=== PATIENT | female | born 1945 | race African-American/Black ===

== ENCOUNTER 2021-01-07 10:49 | Outpatient (REF) | payer MEDICARE, SELFPAY ==
[2021-01-07 13:41] LABS: MANUAL DIFF FLAG NO
[2021-01-07 13:53] LABS: Alanine Aminotransferase 20 U/L (0-31); Albumin Level 4.1 g/dL (3.5-5.0); Alkaline Phosphatase 106 U/L (39-117); Anion Gap 15 (12-20); Aspartate Amino Transferase 22 U/L (5-31); Bilirubin Total 0.9 mg/dL (0.0-1.0); Blood Urea Nitrogen 22 mg/dL (9-16); Calcium 9.7 mg/dL (8.4-10.2); Carbon Dioxide 27 mmol/L (22-29); Chloride 104 mmol/L (96-108); Cholesterol 138 mg/dL; Estimated Glomerular Filt Rate 47; Glucose Fasting 96 mg/dL (60-99); HDL Cholesterol 38 mg/dL; LDL Cholesterol Calculated 85 mg/dl; Potassium 3.8 mmol/L (3.3-5.1); Sodium 142 mmol/L (135-145); Total Protein 7.6 g/dL (6.5-8.0); Triglycerides 79 mg/dL
[2021-01-07 13:59] LABS: Basophils Percent Auto 0.6 % (0-2); Eosinophils Absolute Auto 0.2 X10*3/uL (0.0-0.4); Eosinophils Percent Auto 3.7 % (0-4); Hematocrit 36.8 % (37-47); Hemoglobin 11.9 g/dl (12.0-16.0); Imm Gran Abs Auto 0.03 X10*3/uL (0.00-0.03); Imm Gran Pct Auto 0.6 % (0.0-0.4); Lymphocytes Absolute Auto 1.5 X10*3/uL (1.2-4.9); Lymphocytes Percent Auto 28.6 % (20-40); Mean Corpuscular HGB Conc 32.3 g/dl (31.0-35.0); Mean Corpuscular Hemoglobin 28.5 pg (27.0-33.0); Mean Platelet Volume 10.4 fL (9.4-12.3); Monocytes Absolute Auto 0.3 X10*3/uL (0.1-1.2); Monocytes Percent Auto 6.7 % (2-11); Neutrophils Absolute Auto 3.1 X10*3/uL (2.0-8.3); Neutrophils Percent Auto 59.8 % (45-73); Platelet Count 314 X10*3/uL (160-400); Red Blood Count 4.18 X10*6/uL (4.20-5.50); Red Cell Distribution Width 13.5 % (11.0-16.0); White Blood Count 5.1 X10*3/uL (4.8-10.8)
== END 2021-01-07 10:50 | disposition home or self-care (01) ==
LOC: HO.10HDL 10:49
PROVIDERS: PCP Internal Medicine; Visit Provider Internal Medicine
DX: I48.91 Unspecified atrial fibrillation (principal); I12.9 Hypertensive chronic kidney disease with stage 1 through stage 4 chronic kidney disease, or unspecified chronic kidney disease; N18.9 Chronic kidney disease, unspecified; E78.00 Pure hypercholesterolemia, unspecified
CPT/HCPCS: 36415; 80053; 80061; 85025

== ENCOUNTER 2021-04-14 10:50 | Outpatient (REF) | payer MEDICARE, SELFPAY ==
[2021-04-14 13:41] LABS: MANUAL DIFF FLAG NO
[2021-04-14 13:45] LABS: Basophils Absolute Auto 0.1 X10*3/uL (0.0-0.2); Basophils Percent Auto 0.8 % (0-2); Eosinophils Absolute Auto 0.2 X10*3/uL (0.0-0.4); Eosinophils Percent Auto 2.7 % (0-4); Hematocrit 36.4 % (37.0-47.0); Imm Gran Abs Auto 0.01 X10*3/uL (0.00-0.03); Imm Gran Pct Auto 0.2 % (0.0-0.4); Lymphocytes Absolute Auto 1.5 X10*3/uL (1.2-4.9); Lymphocytes Percent Auto 23.3 % (20-40); Mean Corpuscular Volume 87.9 fL (80.0-98.0); Mean Platelet Volume 10.1 fL (9.4-12.3); Monocytes Absolute Auto 0.4 X10*3/uL (0.1-1.2); Monocytes Percent Auto 6.8 % (2-11); Neutrophils Absolute Auto 4.19 x10*3/uL (2.0-8.3); Neutrophils Percent Auto 66.2 % (45-73); Platelet Count 369 X10*3/uL (160-400); Red Blood Count 4.14 X10*6/uL (4.20-5.50); Red Cell Distribution Width 14.5 % (11.0-16.0); White Blood Count 6.3 X10*3/uL (4.8-10.8)
[2021-04-14 14:21] LABS: Anion Gap 12 (12-20); Blood Urea Nitrogen 22 mg/dL (9-16); C Reactive Protein 0.25 mg/dL (< or = 0.50); Calcium 9.7 mg/dL (8.4-10.2); Carbon Dioxide 30 mmol/L (22-29); Chloride 104 mmol/L (96-108); Estimated Glomerular Filt Rate 44; Glucose Fasting 98 mg/dL (60-99); Iron 46 mcg/dL (30-160); Percent Iron Saturation 12 % (15-50); Sodium 142 mmol/L (135-145); Total Iron Binding Capacity 369 mcg/dL (228-428); Unsaturated Iron Binding 323 ug/dL
[2021-04-14 14:35] LABS: Free T4 (Free Thyroxine) 1.08 ng/dL (0.71-1.85); Thyroid Stimulating Hormone 1.22 uIU/mL (0.32-4.0)
== END 2021-04-14 10:51 | disposition home or self-care (01) ==
LOC: HO.10HDL 10:50
PROVIDERS: Visit Provider Internal Medicine
DX: I48.91 Unspecified atrial fibrillation (principal); D64.9 Anemia, unspecified; N18.9 Chronic kidney disease, unspecified
CPT/HCPCS: 36415; 80048; 83540; 84439; 84443; 85025; 86140

== ENCOUNTER 2021-08-09 10:10 | Outpatient (REF) | payer MEDICARE, SELFPAY ==
[2021-08-09 13:51] LABS: MANUAL DIFF FLAG NO
[2021-08-09 14:03] LABS: Basophils Percent Auto 0.7 % (0-2); Eosinophils Absolute Auto 0.1 X10*3/uL (0.0-0.4); Eosinophils Percent Auto 2.3 % (0-4); Hematocrit 37.5 % (37.0-47.0); Hemoglobin 12.2 g/dl (12.0-16.0); Imm Gran Abs Auto 0.02 X10*3/uL (0.00-0.03); Imm Gran Pct Auto 0.4 % (0.0-0.4); Lymphocytes Absolute Auto 1.1 X10*3/uL (1.2-4.9); Mean Corpuscular HGB Conc 32.5 g/dl (31.0-35.0); Mean Corpuscular Hemoglobin 28.1 pg (27.0-33.0); Mean Corpuscular Volume 86.4 fL (80.0-98.0); Mean Platelet Volume 10.1 fL (9.4-12.3); Monocytes Absolute Auto 0.4 X10*3/uL (0.1-1.2); Monocytes Percent Auto 6.5 % (2-11); Neutrophils Percent Auto 71.1 % (45-73); Platelet Count 377 X10*3/uL (160-400); Red Blood Count 4.34 X10*6/uL (4.20-5.50); Red Cell Distribution Width 14.1 % (11.0-16.0); White Blood Count 5.7 X10*3/uL (4.8-10.8)
[2021-08-09 14:21] LABS: Alanine Aminotransferase 23 U/L (0-31); Albumin Level 4.1 g/dL (3.5-5.0); Alkaline Phosphatase 114 U/L (39-117); Anion Gap 13 (12-20); Aspartate Amino Transferase 24 U/L (5-31); Bilirubin Total 0.9 mg/dL (0.0-1.0); Blood Urea Nitrogen 15 mg/dL (9-16); Calcium 9.8 mg/dL (8.4-10.2); Carbon Dioxide 31 mmol/L (22-29); Chloride 102 mmol/L (96-108); Estimated Glomerular Filt Rate 48; Glucose Fasting 97 mg/dL (60-99); Potassium 3.7 mmol/L (3.3-5.1); Sodium 142 mmol/L (135-145); Total Protein 7.8 g/dL (6.5-8.0)
== END 2021-08-09 10:11 | disposition home or self-care (01) ==
LOC: HO.10HDL 10:10
PROVIDERS: Visit Provider Internal Medicine
DX: I48.91 Unspecified atrial fibrillation (principal); I12.9 Hypertensive chronic kidney disease with stage 1 through stage 4 chronic kidney disease, or unspecified chronic kidney disease; N18.9 Chronic kidney disease, unspecified
CPT/HCPCS: 36415; 80053; 85025

== ENCOUNTER 2022-03-07 10:18 | Outpatient (REF) | payer MEDICARE, SELFPAY ==
[2022-03-07 10:43] LABS: MANUAL DIFF FLAG NO
[2022-03-07 10:56] LABS: Basophils Absolute Auto 0.1 X10*3/uL (0.0-0.2); Basophils Percent Auto 1.4 % (0-2); Eosinophils Absolute Auto 0.2 X10*3/uL (0.0-0.4); Eosinophils Percent Auto 3.6 % (0-4); Hematocrit 36.7 % (37.0-47.0); Hemoglobin 11.9 g/dl (12.0-16.0); Imm Gran Abs Auto 0.02 X10*3/uL (0.00-0.03); Imm Gran Pct Auto 0.3 % (0.0-0.4); Lymphocytes Absolute Auto 1.4 X10*3/uL (1.2-4.9); Lymphocytes Percent Auto 23.7 % (20-40); Mean Corpuscular HGB Conc 32.4 g/dl (31.0-35.0); Mean Corpuscular Hemoglobin 28.5 pg (27.0-33.0); Mean Corpuscular Volume 87.8 fL (80.0-98.0); Mean Platelet Volume 9.7 fL (9.4-12.3); Monocytes Absolute Auto 0.5 X10*3/uL (0.1-1.2); Monocytes Percent Auto 8.1 % (2-11); Neutrophils Absolute Auto 3.7 x10*3/uL (2.0-8.3); Neutrophils Percent Auto 62.9 % (45-73); Platelet Count 348 X10*3/uL (160-400); Red Blood Count 4.18 X10*6/uL (4.20-5.50); White Blood Count 5.8 X10*3/uL (4.8-10.8)
[2022-03-07 11:24] LABS: Alanine Aminotransferase 32 U/L (0-31); Alkaline Phosphatase 111 U/L (39-117); Anion Gap 14 (12-20); Aspartate Amino Transferase 37 U/L (5-31); Bilirubin Total 0.7 mg/dL (0.0-1.0); Blood Urea Nitrogen 15 mg/dL (9-16); Calcium 9.3 mg/dL (8.4-10.2); Carbon Dioxide 30 mmol/L (22-29); Chloride 105 mmol/L (96-108); Cholesterol 116 mg/dL; Estimated Glomerular Filt Rate 60; Glucose Fasting 94 mg/dL (60-99); HDL Cholesterol 38 mg/dL; LDL Cholesterol Calculated 68 mg/dl; Potassium 3.6 mmol/L (3.3-5.1); Sodium 145 mmol/L (135-145); Total Protein 7.2 g/dL (6.5-8.0); Triglycerides 51 mg/dL
== END 2022-03-07 10:19 | disposition home or self-care (01) ==
LOC: HO.10HDL 10:18
PROVIDERS: Visit Provider Internal Medicine
DX: I48.91 Unspecified atrial fibrillation (principal); I10 Essential (primary) hypertension; E78.00 Pure hypercholesterolemia, unspecified
CPT/HCPCS: 36415; 80053; 80061; 85025

== ENCOUNTER 2022-06-20 10:05 | Outpatient (REF) | payer MEDICARE, SELFPAY ==
[2022-06-20 10:33] LABS: MANUAL DIFF FLAG NO
[2022-06-20 10:39] LABS: Basophils Absolute Auto 0.1 X10*3/uL (0.0-0.2); Basophils Percent Auto 0.8 % (0-2); Eosinophils Absolute Auto 0.2 X10*3/uL (0.0-0.4); Eosinophils Percent Auto 2.4 % (0-4); Hematocrit 39.1 % (37.0-47.0); Hemoglobin 12.6 g/dl (12.0-16.0); Imm Gran Abs Auto 0.02 X10*3/uL (0.00-0.03); Imm Gran Pct Auto 0.3 % (0.0-0.4); Lymphocytes Absolute Auto 1.1 X10*3/uL (1.2-4.9); Lymphocytes Percent Auto 18.2 % (20-40); Mean Corpuscular HGB Conc 32.2 g/dl (31.0-35.0); Mean Corpuscular Hemoglobin 28.5 pg (27.0-33.0); Mean Corpuscular Volume 88.5 fL (80.0-98.0); Mean Platelet Volume 9.9 fL (9.4-12.3); Monocytes Absolute Auto 0.5 X10*3/uL (0.1-1.2); Monocytes Percent Auto 7.3 % (2-11); Neutrophils Absolute Auto 4.4 x10*3/uL (2.0-8.3); Platelet Count 312 X10*3/uL (160-400); Red Blood Count 4.42 X10*6/uL (4.20-5.50); White Blood Count 6.1 X10*3/uL (4.8-10.8)
[2022-06-20 11:18] LABS: Alanine Aminotransferase 15 U/L (0-31); Albumin Level 4.2 g/dL (3.5-5.0); Alkaline Phosphatase 112 U/L (39-117); Anion Gap 14 (12-20); Aspartate Amino Transferase 20 U/L (5-31); Blood Urea Nitrogen 23 mg/dL (9-16); Calcium 9.8 mg/dL (8.4-10.2); Carbon Dioxide 28 mmol/L (22-29); Chloride 107 mmol/L (96-108); Estimated Glomerular Filt Rate 54; Glucose Fasting 89 mg/dL (60-99); Iron 86 mcg/dL (30-160); Percent Iron Saturation 27 % (15-50); Potassium 3.8 mmol/L (3.3-5.1); Sodium 145 mmol/L (135-145); Total Iron Binding Capacity 324 mcg/dL (228-428); Total Protein 7.7 g/dL (6.5-8.0); Unsaturated Iron Binding 238 ug/dL
== END 2022-06-20 10:06 | disposition home or self-care (01) ==
LOC: HO.10HDL 10:05
PROVIDERS: Visit Provider Internal Medicine
DX: I48.91 Unspecified atrial fibrillation (principal); D64.9 Anemia, unspecified; N18.9 Chronic kidney disease, unspecified
CPT/HCPCS: 36415; 80053; 83540; 85025

== ENCOUNTER 2022-10-13 10:48 | Outpatient (REF) | payer MEDICARE, SELFPAY ==
[2022-10-13 13:31] LABS: MANUAL DIFF FLAG NO
[2022-10-13 13:39] LABS: Basophils Absolute Auto 0.1 X10*3/uL (0.0-0.2); Basophils Percent Auto 0.8 % (0-2); Eosinophils Absolute Auto 0.2 X10*3/uL (0.0-0.4); Eosinophils Percent Auto 3.1 % (0-4); Hematocrit 37.4 % (37.0-47.0); Hemoglobin 12.3 g/dl (12.0-16.0); Imm Gran Abs Auto 0.02 X10*3/uL (0.00-0.03); Imm Gran Pct Auto 0.3 % (0.0-0.4); Lymphocytes Absolute Auto 1.3 X10*3/uL (1.2-4.9); Lymphocytes Percent Auto 20.1 % (20-40); Mean Corpuscular HGB Conc 32.9 g/dl (31.0-35.0); Mean Corpuscular Hemoglobin 28.9 pg (27.0-33.0); Mean Platelet Volume 9.9 fL (9.4-12.3); Monocytes Absolute Auto 0.6 X10*3/uL (0.1-1.2); Monocytes Percent Auto 8.6 % (2-11); Neutrophils Absolute Auto 4.4 x10*3/uL (2.0-8.3); Neutrophils Percent Auto 67.1 % (45-73); Platelet Count 319 X10*3/uL (160-400); Red Blood Count 4.25 X10*6/uL (4.20-5.50); White Blood Count 6.5 X10*3/uL (4.8-10.8)
[2022-10-13 13:58] LABS: Alanine Aminotransferase 31 U/L (0-31); Albumin Level 4.1 g/dL (3.5-5.0); Alkaline Phosphatase 113 U/L (39-117); Anion Gap 13 (12-20); Aspartate Amino Transferase 33 U/L (5-31); Bilirubin Total 0.9 mg/dL (0.0-1.0); Blood Urea Nitrogen 26 mg/dL (9-16); Calcium 9.6 mg/dL (8.4-10.2); Carbon Dioxide 27 mmol/L (22-29); Chloride 106 mmol/L (96-108); Estimated Glomerular Filt Rate 48; Glucose Random 101 mg/dL (60-115); Potassium 3.9 mmol/L (3.3-5.1); Sodium 142 mmol/L (135-145); Total Protein 7.4 g/dL (6.5-8.0)
[2022-10-13 14:25] LABS: Free T4 (Free Thyroxine) 1.14 ng/dL (0.71-1.85); Thyroid Stimulating Hormone 1.18 uIU/mL (0.32-4.0); Vitamin B12 623 pg/mL (200-900)
== END 2022-10-13 10:49 | disposition home or self-care (01) ==
LOC: HO.10HDL 10:48
PROVIDERS: Visit Provider Internal Medicine
DX: R53.83 Other fatigue (principal); I48.91 Unspecified atrial fibrillation; I12.9 Hypertensive chronic kidney disease with stage 1 through stage 4 chronic kidney disease, or unspecified chronic kidney disease; N18.9 Chronic kidney disease, unspecified
CPT/HCPCS: 36415; 80053; 82607; 84439; 84443; 85025; 86140

== ENCOUNTER 2023-01-03 08:15 | Outpatient (AMB) | payer MEDICARE, SELFPAY ==
--- NOTE | 2023-01-03 08:28 | MHC.OFFVIS ---
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 Intake Note: NPV w/ EKG Charge Account Authorizer Required: No Accompanied by: Daughter Allergies amoxicillin [AMOXICILLIN] Allergy (Unknown, Verified 01/03/23 08:33) ITCHINESS/RASH Amoxicillin Allergy (Unknown, Uncoded 01/03/23 08:33) ??rash Medication List - Last Reconciled 01/03/23 by Girish Jalloh MD amlodipine 10 mg PO DAILY apixaban (Eliquis) 5 mg PO BID aspirin (Adult Aspirin Regimen) 81 mg PO DAILY atorvastatin 80 mg PO BEDTIME cholecalciferol (vitamin D3) 25 mcg PO DAILY metoprolol tartrate 100 mg PO BID triamterene-hydrochlorothiazid 37.5-25 mg 1 tab PO DAILY HPI HPI Comments History of Present Illness Details Karolina is here for consultation regarding possible congestive heart failure. She has a long history of atrial fibrillation, going back many years apparently. She has seen Dr. Davies in the past but nothing in the recent past. History of coronary disease. Per prior documentation, PCI to circumflex/OM 2010. Also diffuse RCA disease. She states that recently she has been getting more short of breath than usual. Some degree of leg swelling. Hence she has been referred. No clear-cut angina. [facility] Medical History (Updated 01/03/23 @ 08:50 by Girish Jalloh MD) Atherosclerotic cardiovascular disease Persistent atrial fibrillation Stroke Family History (Updated 01/03/23 @ 08:38 by Sarah Trevizo) Brother S/P triple vessel bypass Social History (Updated 01/03/23 @ 08:38 by Sarah Trevizo) Alcohol intake: never Patient Tobacco Use Status: Never used Tobacco Review of Systems Const Denies chills, Denies daytime sleepiness, Denies fatigue, Denies fever(s), Denies frequent falls, Denies night sweats, Denies snoring, Denies weakness, Denies weight gain and Denies weight loss Eyes Denies loss of vision ENT Denies dizziness and Denies hearing loss Card Denies chest pain, Denies chest pain with activity, Denies syncope, Denies rapid heart rate, Denies edema, Denies claudication, Denies leg edema, Denies lightheadedness, Denies palpitations, Denies dyspnea, Denies dyspnea on exertion and Denies orthopnea Resp Denies cough, Denies excessive phlegm production, Denies dyspnea, Denies dyspnea on exertion, Denies snoring and Denies wheezing GI Denies abdominal pain, Denies hematochezia, Denies change in bowel habits, Denies change in stool character, Denies heartburn, Denies nausea and Denies vomiting Denies hematuria, Denies urinary frequency and Denies dysuria Musc Denies arthralgias, Denies muscle weakness, Denies numbness and Denies tingling Skin/Breast Denies nail changes and Denies rash Neuro Denies Abnormal speech present, Denies dizziness, Denies syncope, Denies frequent falls, Denies loss of vision, Denies memory loss, Denies numbness, Denies tingling and Denies weakness Psych Denies depression and Denies memory loss Endo Denies fatigue and Denies palpitations Aller/Immun Denies wheezing Physical Exam Vital Signs: Last Vital Signs Pulse 70 01/03/23 08:30 BP 108/62 01/03/23 08:30 BMI result Body Mass Index 28.7 Const General: comfortable and no acute distress Orientation/consciousness: patient oriented x3 HEENT Other: Unremarkable Head: Yes normal to inspection Neck Neck: Yes normal visual inspection Chest Chest palpation & inspection: normal inspection of the chest Resp Auscultation: clear to auscultation bilaterally Cardio Palpation: normal PMI Heart sounds: S1 normal heart sound present, S2 normal heart sound present, no gallops, Murmur heart sound present diastolic II/ and at the right sternal border and no rubs GI Palpation (GI): Soft to palpation Back/Spine/Pelvis Other: unremarkable Skin General skin exam: no rashes or lesions noted Neuro General: patient oriented x3 Speech: No Abnormal speech present Extrem Other: 1+ edema General: Yes normal to inspection Psych Mental Status: mental status grossly normal Assessment & Plan Assessment & Plan (1) Persistent atrial fibrillation: Code(s): I48.19 - Other persistent atrial fibrillation Plan: Seems rate controlled. We will check Holter for adequacy control. Otherwise, continue current medications. Already on anticoagulation. Recent EKG shows atrial fibrillation rate of 68/Min. (2) Atherosclerotic cardiovascular disease: Code(s): I25.10 - Atherosclerotic heart disease of [place] coronary artery without angina pectoris Plan: Per prior documentation, PCI to circumflex/OM from 2011. Severe diffuse RCA disease as well. May need a stress test but will await the echocardiogram 1st. (3) Congestive heart failure: Code(s): I50.9 - Heart failure, unspecified Plan: She does have some leg swelling/shortness of breath and could have developed congestive heart failure related to coronary disease and atrial fibrillation. Needs an echocardiogram for further evaluation. Plan Discussed with daughter who came for appointment. Orders: Orders CA echo transthoracic complete Today I25.10 - Atherosclerotic heart disease of [place] coronary artery without angina pectoris, I50.9 - Heart failure, unspecified ECG 3 day holter monitor Today I48.19 - Other persistent atrial fibrillation, R00.2 - Palpitations Coding Level of Care Code New Pt Level 4 (63505) Diagnoses Persistent atrial fibrillation I48.19 Atherosclerotic cardiovascular disease I25.10 Congestive heart failure I50.9
[2023-01-03 08:30] VITALS: BP 108/62; PULSE 70; BMI 28.7
== END 2023-01-03 08:59 | disposition home or self-care (01) ==
PROVIDERS: Visit Provider Internal Medicine
DX: I48.19 Other persistent atrial fibrillation (principal); I25.10 Atherosclerotic heart disease of native coronary artery without angina pectoris; I50.9 Heart failure, unspecified
CPT/HCPCS: 99204

== ENCOUNTER → 2023-01-03 08:15 | Outpatient (BNVA) | payer MEDICARE, SELFPAY | PROVIDERS: Visit Provider Internal Medicine | DX: I48.19 Other persistent atrial fibrillation (principal); I25.10 Atherosclerotic heart disease of native coronary artery without angina pectoris; I11.0 Hypertensive heart disease with heart failure; I50.9 Heart failure, unspecified; Z95.5 Presence of coronary angioplasty implant and graft | CPT/HCPCS: 99202 ==

== ENCOUNTER 2023-01-05 11:55 | Outpatient (REF) | payer MEDICARE, SELFPAY ==
[2023-01-05 13:28] LABS: MANUAL DIFF FLAG NO
[2023-01-05 13:56] LABS: Basophils Absolute Auto 0.1 X10*3/uL (0.0-0.2); Basophils Percent Auto 0.9 % (0-2); Eosinophils Absolute Auto 0.2 X10*3/uL (0.0-0.4); Eosinophils Percent Auto 3.2 % (0-4); Hematocrit 39.5 % (37.0-47.0); Lymphocytes Absolute Auto 1.4 X10*3/uL (1.2-4.9); Mean Corpuscular HGB Conc 32.9 g/dl (31.0-35.0); Mean Corpuscular Hemoglobin 28.4 pg (27.0-33.0); Mean Corpuscular Volume 86.4 fL (80.0-98.0); Mean Platelet Volume 10.1 fL (9.4-12.3); Monocytes Absolute Auto 0.5 X10*3/uL (0.1-1.2); Monocytes Percent Auto 8.1 % (2-11); Neutrophils Absolute Auto 3.5 x10*3/uL (2.0-8.3); Neutrophils Percent Auto 62.8 % (45-73); Platelet Count 292 X10*3/uL (160-400); Red Blood Count 4.57 X10*6/uL (4.20-5.50); Red Cell Distribution Width 14.9 % (11.0-16.0); White Blood Count 5.6 X10*3/uL (4.8-10.8)
[2023-01-05 14:18] LABS: Anion Gap 16 (12-20); Blood Urea Nitrogen 20 mg/dL (9-16); Calcium 9.7 mg/dL (8.4-10.2); Carbon Dioxide 24 mmol/L (22-29); Chloride 106 mmol/L (96-108); Estimated Glomerular Filt Rate 57; Glucose Random 93 mg/dL (60-115); Iron 72 mcg/dL (30-160); Percent Iron Saturation 23 % (15-50); Potassium 3.8 mmol/L (3.3-5.1); Sodium 142 mmol/L (135-145); Total Iron Binding Capacity 308 mcg/dL (228-428); Unsaturated Iron Binding 236 ug/dL
== END 2023-01-05 11:56 | disposition home or self-care (01) ==
LOC: HO.10HDL 11:55
PROVIDERS: Visit Provider Internal Medicine
DX: I48.91 Unspecified atrial fibrillation (principal); R60.9 Edema, unspecified; N18.9 Chronic kidney disease, unspecified
CPT/HCPCS: 36415; 80048; 83540; 85025

== ENCOUNTER → 2023-01-11 13:02 | Outpatient (REF) | payer MEDICARE, SELFPAY ==
--- NOTE | 2023-01-11 13:06 | CA_ITS ---
Transthoracic Echocardiogram Patient (Last, First, Middle): Karolina Reed, Gender: Female Date of : 1945 Age: 77 Procedure Date: 01/11/2023 Procedure Type: Transthoracic Echocardiogram Location: OP Height: 165.1 cm Weight: 76.66 kg BSA: 1.84 m2 Heart Rate: 84 bpm BP: 120 / 60 mmHg Technical Engineer: FRANCES Referring MD: Girish Jalloh MD Symptoms: I25.10 - Atherosclerotic heart disease of [place] coronary artery without... Study Quality: Adequate ECG Rhythm: Atrial Fibrillation Conclusions: - The calculated ejection fraction is 64% by biplane method. There is no evidence of regional wall motion abnormalities. - Severe biatrial enlargement. - There is mild aortic valve regurgitation. - Moderate pulmonary hypertension is present. - There is mild dilatation of the ascending aorta measuring 4.20 cm. Findings Left Ventricle Normal left ventricular cavity size. The left ventricular systolic function is normal. The calculated ejection fraction is 64% by biplane method. There is no evidence of regional wall motion abnormalities. Diastolic function is indeterminate on the basis of available data. There is moderate septal and moderate basal asymmetric hypertrophy. Right Ventricle Normal right ventricular cavity size. There is mildly decreased right ventricular systolic function. Atria Severe biatrial enlargement. Aortic Valve There is a normal trileaflet aortic valve. There is mild calcification of the aortic valve. There is mild aortic valve regurgitation. Mitral Valve There is mild mitral annular calcification. There is mild mitral valve regurgitation. There is no mitral valve stenosis. Pulmonic Valve There is trace to mild pulmonic valve regurgitation. Tricuspid Valve Normal tricuspid valve structure. There is mild tricuspid valve regurgitation. The right ventricular systolic pressure is 66 mmHg. Moderate pulmonary hypertension is present. Great Vessels There is mild dilatation of the ascending aorta measuring 4.20 cm. Venous The inferior vena cava is mildly dilated and collapses less than 50% with inspiration. Pericardium/Pleural There is no evidence of pericardial effusion. Prior Study Comparison Changes noted compared to prior study dated: 12/23/2014. Increase in atrial size. Measurements 2D Linear Measurements IVSd: 1.44 0.6-0.9/0.6-1.0 cm LVIDd: 3.93 3.9-5.3/4.2-5.9 cm LVIDd Index: 2.14 2.4-3.2/2.2-3.1 cm/m2 LVIDs: 2.38 2.0-3.6 cm LVPWd: 1.10 0.7-1.1 cm LA Diam: 4.10 2.7-3.8/3.0-4.0 cm LAIDs Index: 2.23 1.5-2.3 cm/m2 LV Mass: 218.55 67-162/88-224 g LV Mass Index: 118.78 43-95/49-115 g/m2 LVOT Diam: 1.80 3.0+(-)1.3 cm 2D Systolic Function EF 4C: 64.70 >55% EF 2C: 64.70 >55% EF BiP: 64.20 >55% Mitral Valve MV Pk E: 1.30 MV Decel Time: 176.00 E'Lateral: 9.79 E'Medial: 7.51 E/E' Med: 17.30 E/E' Lat: 13.30 PHT: 52.00 MVA PHT: 4.23 Decel [place]: 7.38 Aortic Valve AoV Pk Dereck: 2.07 AoV Mn Dereck: 1.43 AoV VTI: 0.46 AoV Pk Grad: 17.00 Aov Mn Grad: 9.00 MARK Cont.VTI: 1.42 AI Pk Dereck: 3.58 AI [place]: 2.37 LVOT LVOT Pk Dereck: 1.19 LVOT Mn [place]reck: 0.78 LVOT VTI: 0.26 LVOT Pk Grad: 6.00 LVOT Mn Grad: 3.00 LVOT Diam: 1.80 LVOT Area: 2.54 Diastolic Function MV Pk E: 1.30 E'Medial: 7.51 E/E' Med: 17.30 E' Laterial: 9.79 E/E' Lat: 13.30 Right Ventricle TAPSE (mm): 14.30 TVS' [place]reck: 8.59 Tricuspid Valve TR Pk Dereck: 3.56 TR Pk Grad: 51.00 RA Press: 15.00 RVSP: 66.00 Great Vessels Aorta Sinus of Valsalva: 3.40 2.0-3.5 cm Ao Asc: 4.20 2.1-3.4 cm Pulmonary Valve PV Pk Dereck: 0.99 Peak PV Grad: 4.00 ID Pk Dereck: 2.62 Updated in Other Vendor System with Status of Final Girish Jalloh MD electronically signed on 01/14/2023 10:24:52 AM with status of Final
--- NOTE | 2023-01-11 13:06 | HM_ITS ---
* Total monitoring time 3 days. * Underlying rhythm is atrial fibrillation. Average ventricular rate 66/Min. Range 43 to 101/Min. * No significant pauses or AV blocks. * Frequent PVCs with a burden of 3.8%. * Chest discomfort and diarrhea associated with atrial fibrillation, controlled rate/ isolated PVCs. MTDD
== END ==
LOC: HO.CARD 13:02
PROVIDERS: PCP Internal Medicine; Visit Provider Internal Medicine
DX: I25.10 Atherosclerotic heart disease of native coronary artery without angina pectoris (principal); I50.9 Heart failure, unspecified; I48.19 Other persistent atrial fibrillation; R00.2 Palpitations
CPT/HCPCS: 93242; 93306

== ENCOUNTER → 2023-01-11 13:06 | Outpatient (BNV) | payer MEDICARE, SELFPAY | PROVIDERS: PCP Internal Medicine; Visit Provider Internal Medicine | DX: I48.91 Unspecified atrial fibrillation (principal) | CPT/HCPCS: 93244; 93306 ==

== ENCOUNTER 2023-04-14 10:09 | Outpatient (REF) | payer MEDICARE, SELFPAY ==
[2023-04-14 10:40] LABS: MANUAL DIFF FLAG NO
[2023-04-14 10:45] LABS: Basophils Percent Auto 0.7 % (0-2); Eosinophils Absolute Auto 0.2 X10*3/uL (0.0-0.4); Eosinophils Percent Auto 3.2 % (0-4); Hematocrit 34.4 % (37.0-47.0); Hemoglobin 11.5 g/dl (12.0-16.0); Imm Gran Abs Auto 0.02 X10*3/uL (0.00-0.03); Imm Gran Pct Auto 0.3 % (0.0-0.4); Lymphocytes Absolute Auto 1.3 X10*3/uL (1.2-4.9); Lymphocytes Percent Auto 21.5 % (20-40); Mean Corpuscular HGB Conc 33.4 g/dl (31.0-35.0); Mean Corpuscular Hemoglobin 29.4 pg (27.0-33.0); Mean Platelet Volume 9.6 fL (9.4-12.3); Monocytes Absolute Auto 0.4 X10*3/uL (0.1-1.2); Monocytes Percent Auto 7.5 % (2-11); Neutrophils Absolute Auto 3.9 x10*3/uL (2.0-8.3); Neutrophils Percent Auto 66.8 % (45-73); Platelet Count 275 X10*3/uL (160-400); Red Blood Count 3.91 X10*6/uL (4.20-5.50); Red Cell Distribution Width 13.7 % (11.0-16.0); White Blood Count 5.9 X10*3/uL (4.8-10.8)
[2023-04-14 11:11] LABS: Alanine Aminotransferase 18 U/L (0-31); Albumin Level 3.9 g/dL (3.5-5.0); Alkaline Phosphatase 86 U/L (39-117); Anion Gap 12 (12-20); Aspartate Amino Transferase 23 U/L (5-31); Bilirubin Total 0.9 mg/dL (0.0-1.0); Blood Urea Nitrogen 19 mg/dL (9-16); Calcium 9.4 mg/dL (8.4-10.2); Carbon Dioxide 27 mmol/L (22-29); Chloride 104 mmol/L (96-108); Cholesterol 108 mg/dL (<200); Estimated Glomerular Filt Rate 52; Glucose Random 88 mg/dL (60-115); Potassium 3.2 mmol/L (3.3-5.1); Sodium 140 mmol/L (135-145); Total Protein 7.5 g/dL (6.5-8.0)
[2023-04-14 11:25] LABS: Vitamin D 25-OH Total 45.8 ng/mL (>30)
== END 2023-04-14 10:10 | disposition home or self-care (01) ==
LOC: HO.10HDL 10:09
PROVIDERS: Visit Provider Internal Medicine
DX: I12.9 Hypertensive chronic kidney disease with stage 1 through stage 4 chronic kidney disease, or unspecified chronic kidney disease (principal); I48.91 Unspecified atrial fibrillation; N18.9 Chronic kidney disease, unspecified; E78.00 Pure hypercholesterolemia, unspecified
CPT/HCPCS: 36415; 80053; 82306; 82465; 83735; 85025

== ENCOUNTER 2023-08-11 10:11 | Outpatient (REF) | payer MEDICARE, SELFPAY ==
[2023-08-11 11:06] LABS: MANUAL DIFF FLAG NO
[2023-08-11 11:40] LABS: Basophils Absolute Auto 0.1 X10*3/uL (0.0-0.2); Eosinophils Absolute Auto 0.2 X10*3/uL (0.0-0.4); Hematocrit 40.2 % (37.0-47.0); Hemoglobin 13.4 g/dl (12.0-16.0); Imm Gran Abs Auto 0.02 X10*3/uL (0.00-0.03); Imm Gran Pct Auto 0.3 % (0.0-0.4); Lymphocytes Absolute Auto 1.4 X10*3/uL (1.2-4.9); Lymphocytes Percent Auto 24.8 % (20-40); Mean Corpuscular HGB Conc 33.3 g/dl (31.0-35.0); Mean Corpuscular Hemoglobin 28.8 pg (27.0-33.0); Mean Corpuscular Volume 86.3 fL (80.0-98.0); Mean Platelet Volume 10.1 fL (9.4-12.3); Monocytes Absolute Auto 0.5 X10*3/uL (0.1-1.2); Neutrophils Absolute Auto 3.5 x10*3/uL (2.0-8.3); Neutrophils Percent Auto 60.9 % (45-73); Platelet Count 316 X10*3/uL (160-400); Red Blood Count 4.66 X10*6/uL (4.20-5.50); Red Cell Distribution Width 13.7 % (11.0-16.0); White Blood Count 5.8 X10*3/uL (4.8-10.8)
[2023-08-11 12:12] LABS: Anion Gap 10 (12-20); Blood Urea Nitrogen 21 mg/dL (9-16); Calcium 9.5 mg/dL (8.4-10.2); Carbon Dioxide 30 mmol/L (22-29); Chloride 107 mmol/L (96-108); Estimated Glomerular Filt Rate 59; Glucose Random 82 mg/dL (60-115); Iron 48 mcg/dL (30-160); Percent Iron Saturation 16 % (15-50); Potassium 3.6 mmol/L (3.3-5.1); Sodium 143 mmol/L (135-145); Total Iron Binding Capacity 291 mcg/dL (228-428); Unsaturated Iron Binding 243 ug/dL
[2023-08-11 12:13] LABS: Thyroid Stimulating Hormone 1.28 uIU/mL (0.32-4.0)
== END 2023-08-11 10:12 | disposition home or self-care (01) ==
LOC: HO.10HDL 10:11
PROVIDERS: Visit Provider Internal Medicine
DX: I48.91 Unspecified atrial fibrillation (principal); I12.9 Hypertensive chronic kidney disease with stage 1 through stage 4 chronic kidney disease, or unspecified chronic kidney disease; N18.9 Chronic kidney disease, unspecified; R53.83 Other fatigue; D64.9 Anemia, unspecified
CPT/HCPCS: 36415; 80048; 82550; 83540; 84443; 85025

== ENCOUNTER 2024-01-17 10:01 | Outpatient (REF) | payer MEDICARE, SELFPAY ==
[2024-01-17 11:03] LABS: MANUAL DIFF FLAG NO
[2024-01-17 11:27] LABS: Basophils Absolute Auto 0.1 X10*3/uL (0.0-0.2); Basophils Percent Auto 1.1 % (0-2); Eosinophils Absolute Auto 0.2 X10*3/uL (0.0-0.4); Eosinophils Percent Auto 3.6 % (0-4); Hematocrit 36.1 % (37.0-47.0); Hemoglobin 11.9 g/dl (12.0-16.0); Imm Gran Abs Auto 0.02 X10*3/uL (0.00-0.03); Imm Gran Pct Auto 0.4 % (0.0-0.4); Lymphocytes Absolute Auto 1.6 X10*3/uL (1.2-4.9); Lymphocytes Percent Auto 29.9 % (20-40); Mean Corpuscular Volume 87.8 fL (80.0-98.0); Mean Platelet Volume 10.1 fL (9.4-12.3); Monocytes Absolute Auto 0.4 X10*3/uL (0.1-1.2); Monocytes Percent Auto 7.4 % (2-11); Neutrophils Absolute Auto 3.1 x10*3/uL (2.0-8.3); Neutrophils Percent Auto 57.6 % (45-73); Platelet Count 284 X10*3/uL (160-400); Red Blood Count 4.11 X10*6/uL (4.20-5.50); White Blood Count 5.3 X10*3/uL (4.8-10.8)
[2024-01-17 11:32] LABS: Anion Gap 10 (12-20); Blood Urea Nitrogen 21 mg/dL (9-16); Calcium 9.6 mg/dL (8.4-10.2); Carbon Dioxide 30 mmol/L (22-29); Chloride 106 mmol/L (96-108); Estimated Glomerular Filt Rate 49; Glucose Random 82 mg/dL (60-115); Sodium 142 mmol/L (135-145)
[2024-01-17 11:50] LABS: Thyroid Stimulating Hormone 1.07 uIU/mL (0.32-4.0)
== END 2024-01-17 10:02 | disposition home or self-care (01) ==
LOC: HO.10HDL 10:01
PROVIDERS: Visit Provider Internal Medicine
DX: I48.91 Unspecified atrial fibrillation (principal); R63.4 Abnormal weight loss; I12.9 Hypertensive chronic kidney disease with stage 1 through stage 4 chronic kidney disease, or unspecified chronic kidney disease; N18.9 Chronic kidney disease, unspecified; R60.0 Localized edema
CPT/HCPCS: 36415; 80048; 84443; 85025

== ENCOUNTER 2024-03-11 10:00 | Outpatient (REF) | payer MEDICARE, SELFPAY ==
[2024-03-11 10:13] LABS: MANUAL DIFF FLAG NO
[2024-03-11 11:03] LABS: Basophils Percent Auto 0.7 % (0-2); Eosinophils Absolute Auto 0.2 X10*3/uL (0.0-0.4); Eosinophils Percent Auto 3.4 % (0-4); Hematocrit 38.3 % (37.0-47.0); Hemoglobin 12.6 g/dl (12.0-16.0); Imm Gran Abs Auto 0.01 X10*3/uL (0.00-0.03); Imm Gran Pct Auto 0.2 % (0.0-0.4); Lymphocytes Absolute Auto 1.1 X10*3/uL (1.2-4.9); Mean Corpuscular HGB Conc 32.9 g/dl (31.0-35.0); Mean Corpuscular Hemoglobin 28.8 pg (27.0-33.0); Mean Corpuscular Volume 87.6 fL (80.0-98.0); Mean Platelet Volume 9.9 fL (9.4-12.3); Monocytes Absolute Auto 0.4 X10*3/uL (0.1-1.2); Monocytes Percent Auto 8.2 % (2-11); Neutrophils Absolute Auto 2.7 x10*3/uL (2.0-8.3); Neutrophils Percent Auto 61.5 % (45-73); Platelet Count 277 X10*3/uL (160-400); Red Blood Count 4.37 X10*6/uL (4.20-5.50); Red Cell Distribution Width 13.7 % (11.0-16.0); White Blood Count 4.4 X10*3/uL (4.8-10.8)
[2024-03-11 11:30] LABS: Alanine Aminotransferase 29 U/L (0-31); Albumin Level 4.1 g/dL (3.5-5.0); Alkaline Phosphatase 124 U/L (39-117); Anion Gap 9 (12-20); Aspartate Amino Transferase 40 U/L (5-31); Bilirubin Total 1.2 mg/dL (0.0-1.0); Blood Urea Nitrogen 17 mg/dL (9-16); Calcium 9.7 mg/dL (8.4-10.2); Carbon Dioxide 30 mmol/L (22-29); Chloride 107 mmol/L (96-108); Cholesterol 129 mg/dL (<200); Estimated Glomerular Filt Rate 59; Glucose Fasting 81 mg/dL (60-99); HDL Cholesterol 49 mg/dL (>40); LDL Cholesterol Calculated 70 mg/dL (<100); Potassium 3.8 mmol/L (3.3-5.1); Sodium 142 mmol/L (135-145); Total Protein 7.7 g/dL (6.5-8.0); Triglycerides 51 mg/dL (<150)
== END 2024-03-11 10:01 | disposition home or self-care (01) ==
LOC: HO.LAB 10:00
PROVIDERS: PCP Internal Medicine; Visit Provider Internal Medicine
DX: I48.91 Unspecified atrial fibrillation (principal); I10 Essential (primary) hypertension; N18.9 Chronic kidney disease, unspecified; E78.00 Pure hypercholesterolemia, unspecified
CPT/HCPCS: 36415; 80053; 80061; 85025

== ENCOUNTER 2024-10-29 09:02 | Outpatient (AMB) | payer MEDICARE, SELFPAY ==
--- NOTE | 2024-10-29 09:17 | MHC.PC.OV ---
Vital Signs 10/29/24 09:26 Height 5 ft 4 in Weight 67.585 kg BMI 25.6 BP 160/72 H Respiration 16 Pulse 61 Pulse Source Pulse Oximeter Temp 97.3 F Temp Source Temporal Artery Scan Pulse Oximetry (%) 85 L Oxygen Delivery Method Room Air Intake Visit Reasons: Routine Social And Human Services Assistant Required: No Accompanied by: Self / Same As Patient Allergies amoxicillin [AMOXICILLIN] Allergy (Unknown, Verified 10/29/24 09:24) ITCHINESS/RASH Amoxicillin Allergy (Unknown, Uncoded 10/29/24 09:24) ??rash HPI HPI Comments History of Present Illness Details 78-year-old female with history of persistent atrial fibrillation, coronary artery disease, congestive heart failure, hypertension, history of CVA presents to the office today for management of chronic conditions and to establish care accompanied by her daughter Nikky. Persistent atrial fibrillation-compliant with Eliquis, no easy bruisability or bleeding. Continues on metoprolol 100 mg twice daily for rate control. Holter 02/01 with afib as underlying rhythm, frequent PVC's 3.8%, no significant pauses Coronary artery disease-s/p PCI to circumflex/OM 2010 with severe diffuse RCA disease. Has not seen cardiology since 2022 as she did not want anyone managing her care except Dr. Veliz. Compliant with isosorbide, asa, metoprolol. Has not required use of nitro tabs recently. CVA- 2014 x 2, 2016. Per daughter, has been unsteady since CVA, ambulates with a walker. Reports she is not always careful with turns and transfers but has not fallen. Laundry is in basement and daughters assist. ROS: General: No fevers, malaise, unintentional weight loss HEENT: No blurred vision, diplopia. No sore throat, nasal congestion, rhinorrhea, sinus pain, ear pain Cardiovascular: No chest pain, palpitations, or leg edema Respiratory: No shortness of breath, wheezing, cough Neuro: No headaches, weakness, paresthesias. See hpi Skin: No rashes or lesions Exam: Constitutional - Awake and Alert, No apparent distress Eyes - PERRLA, EOMI Cardiovascular - S1S2, RRR, No edema Respiratory - Normal lung expansion, Normal respiratory effort, No respiratory distress, CTA bilaterally Extremities - no calf tenderness bilaterally, no swelling Skin - Warm/Dry Neurological - Alert & oriented x3 Psychological - Appropriate affect PFSH Medical History (Updated 10/30/24 @ 10:56 by KASIA Larkin) Stroke Atherosclerotic cardiovascular disease Persistent atrial fibrillation Surgical History (Updated 10/30/24 @ 10:56 by KASIA Larkin) S/P cardiac catheterization History of colonoscopy (~02/24/14) Family History (Updated 01/03/23 @ 08:38 by Sarah Trevizo) Brother S/P triple vessel bypass Social History (Updated 01/03/23 @ 08:38 by Sarah Trevizo) Alcohol intake: never Patient Tobacco Use Status: Never used Tobacco Physical exam (Primary Care) Vital Signs: Last Vital Signs Temp 97.3 F 10/29/24 09:26 Pulse 61 10/29/24 09:26 Resp 16 10/29/24 09:26 BP 160/72 H 10/29/24 09:26 Pulse Ox 85 L 10/29/24 09:26 Oxygen Delivery Method Room Air 10/29/24 09:26 BMI result Body Mass Index 25.6 Tobacco/Smoking Status: Tobacco use Status Patient Tobacco Use Status Never used Tobacco 10/29/24 09:20 Advance Care Planning discussion: Completed/Scanned Date of discussion: 10/29/24 Forms completed: Health Care Proxy and MOLST Time spent: 1-15 minutes, not on file Coding Level of Care Code New Pt Level 4 (55481) Complex EM visit Add On G2211 Diagnoses Congestive heart failure I50.9 Atherosclerotic cardiovascular disease I25.10 Persistent atrial fibrillation I48.19 Stroke I63.9 Additional Codes Vital Signs *Quality* - Advance Care Planning discussion: Completed/Scanned ([id number]) Vital Signs *Quality* - Time spent: 1-15 minutes, not on file ([id number]) Assessment & Plan Assessment & Plan (1) Congestive heart failure: Code(s): I50.9 - Heart failure, unspecified Category: Medical Plan: Clinically euvolemic. Not on diuretics. last echo reviewed 01/2023 with preserved EF, indeterminate diastolic function (2) Atherosclerotic cardiovascular disease: Code(s): I25.10 - Atherosclerotic heart disease of [place] coronary artery without angina pectoris Category: Medical Plan: Stable. No recent chest pain. s/PCI 2010. Continue isosorbide, metoprolol, asa. Nitro prn. Referred back to cardiology (3) Persistent atrial fibrillation: Code(s): I48.19 - Other persistent atrial fibrillation Category: Medical Plan: Rate controlled. Continue eliquis 5mg BID for ac. Will check cbc for any evidence of blood loss anemia. Continue metoprolol for rate control. Referred to cardiology (4) Stroke: Comment: 2015. unsteady using walker, no other sequela Code(s): I63.9 - Cerebral infarction, unspecified Category: Medical Plan: No recurrence since 2016. Continue on asa and eliquis. Continue statin. Will check lipid panel. Continue use of walker with safety precautions as discussed. She refuses PT/OT. Plan Follow up in 3 months. Labs to be completed following visit. Counseled on home safety, continue use of walker. Referred to cardiology Orders: Orders Basic Metabolic Panel 10/29/24 I25.10 - Atherosclerotic heart disease of [place] coronary artery without angina pectoris, I48.19 - Other persistent atrial fibrillation, I50.9 - Heart failure, unspecified, I63.9 - Cerebral infarction, unspecified, Z13.1 - Encounter for screening for diabetes mellitus, Z51.89 - Encounter for other specified aftercare Lipid Panel 10/29/24 I25.10 - Atherosclerotic heart disease of [place] coronary artery without angina pectoris, I48.19 - Other persistent atrial fibrillation, I50.9 - Heart failure, unspecified, I63.9 - Cerebral infarction, unspecified, Z13.1 - Encounter for screening for diabetes mellitus, Z51.89 - Encounter for other specified aftercare Liver Panel 10/29/24 I25.10 - Atherosclerotic heart disease of [place] coronary artery without angina pectoris, I48.19 - Other persistent atrial fibrillation, I50.9 - Heart failure, unspecified, I63.9 - Cerebral infarction, unspecified, Z13.1 - Encounter for screening for diabetes mellitus, Z51.89 - Encounter for other specified aftercare Complete Blood Count Auto Diff 10/29/24 I25.10 - Atherosclerotic heart disease of [place] coronary artery without angina pectoris, I48.19 - Other persistent atrial fibrillation, I50.9 - Heart failure, unspecified, I63.9 - Cerebral infarction, unspecified, Z13.1 - Encounter for screening for diabetes mellitus, Z51.89 - Encounter for other specified aftercare Hemoglobin A1c 10/29/24 I25.10 - Atherosclerotic heart disease of [place] coronary artery without angina pectoris, I48.19 - Other persistent atrial fibrillation, I50.9 - Heart failure, unspecified, I63.9 - Cerebral infarction, unspecified, Z13.1 - Encounter for screening for diabetes mellitus, Z51.89 - Encounter for other specified aftercare TSH reflex Free T4 10/29/24 I25.10 - Atherosclerotic heart disease of [place] coronary artery without angina pectoris, I48.19 - Other persistent atrial fibrillation, I50.9 - Heart failure, unspecified, I63.9 - Cerebral infarction, unspecified, Z13.1 - Encounter for screening for diabetes mellitus, Z51.89 - Encounter for other specified aftercare Referrals Cardiology Referral I25.10 - Atherosclerotic heart disease of [place] coronary artery without angina pectoris, I48.19 - Other persistent atrial fibrillation, I50.9 - Heart failure, unspecified
[2024-10-29 09:26] VITALS: BP 160/72; PULSE 61; RESP 16; TEMP 36.3; O2SAT 85; BMI 25.6
--- OUTSIDE RECORDS SUMMARY | 2024-10-29 09:38 | XMS_ITS | Clinical Summary ---
Author Organization [facility] Address [address] [place] [address] Care Team Providers Care Bark Scaler Name Role Phone Unavailable Primary Care Provider Unavailabl e Social History Tobacco Use Types Packs/Day Years Used Date Smoking Tobacco: Never Assessed Sex and Gender Information Value Date Recorded Sex Assigned at Not on file Gender Identity Not on file Sexual Orientation Not on file Plan of Treatment Not on file
--- OUTSIDE RECORDS SUMMARY | 2024-10-29 09:38 | XMS_ITS | Patient Health Record ---
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 Name Role Phone Shailesh Veliz MD Primary Care Provider Braulio Phelps Unavailable [phone] Allergies Allergen (clinical drug ingredient) Drug/Non Drug Allergy documented on EMR Reaction Allergy Type Onset Date Status amoxicillin Amoxicillin Unknown Drug Allergy Act alia Reason For Referral No Information Medications Medication SIG (Take, Route, Frequency, Duration) Notes Start Date End Date Status Metoprolol Tartrate 100 MG take 1 tablet by mouth AT ONSET OF HEADACHE..REPEAT 2 HOURS LATER IF NEEDED Oral for 090 Active Simvastatin 80 MG take 1 tablet by mouth AT ONSET OF HEADACHE..REPEAT 2 HOURS LATER IF NEEDED Oral for 090 Active traZODone HCl 50 MG take 1 tablet by mouth AT ONSET OF HEADACHE..REPEAT 2 HOURS LATER IF NEEDED Oral for 030 Active Isosorbide Mononitrate ER 30 MG take 1 t ablet by mouth AT ONSET OF HEADACHE..REPEAT 2 HOURS LATER IF NEEDED Oral for 030 Active Aspir-81 81 MG 1 tablet Orally Once a day 11/13/2013 Active hydroCHLOROthiazide 25 MG 1 tablet Orall y Once a day Active FLUoxetine HCl 20 MG take 1 tablet by mouth AT ONSET OF HEADACHE..REPEAT 2 HOURS LATER IF NEEDED Oral for 090 Active Valsartan 160 MG 1 tablet Orally Once a day 11/13/2013 Active Colyte w Flavor Packs 240 GM as directed Orally as directed for 1 day(s) 11/13/2013 Active Problems Problem Type SNOMED Code ICD Code Onset Dates Problem Status W/U Status Risk Notes Problem Already on aspirin (419096045) Long-term (current) use of aspirin (V58.66) Active confirmed Problem Colorectal cancer screening service (qualifier value) (9256036932) Encounter for colorectal cancer screening (V76.51) Active confirmed Plan Of Treatment Future Test Test Name Order Date COLONOSCOPY 11/13/2013 Insurance Providers Payer Name Payer Address Payer Phone Subscriber Number Group Number Insured Name Patient Relationship to Insured Coverage Start Date Coverage End Date MED[place]ARE OF [place] [address] [place] [address] [id number] JENNY BROWN Self - patient is the insured Medical (General) History Medical History History ICD Code IN in 2010---1 stent placed at that time HTN Denies DM,CVA,Lung disease,renal disease Negative colonoscopy in approx. 2003 at [facility] Hyperlipidemia Describes episode of CHF in 09/2013 at [facility]--sees Dr. Keke Riggins Surgical History Surgery Date(Month/Year) hysterectomy and removal of 1 ovary
== END 2024-10-29 09:51 | disposition home or self-care (01) ==
LOC: HO.HMCHD 09:02
PROVIDERS: PCP Physician Assistant; Visit Provider Physician Assistant
DX: I50.9 Heart failure, unspecified (principal); I25.10 Atherosclerotic heart disease of native coronary artery without angina pectoris; I48.19 Other persistent atrial fibrillation; I63.9 Cerebral infarction, unspecified; Z00.00 Encounter for general adult medical examination without abnormal findings

== ENCOUNTER → 2024-10-29 09:02 | Outpatient (BNVA) | payer MEDICARE, SELFPAY | PROVIDERS: PCP Physician Assistant; Visit Provider Physician Assistant | DX: Z13.89 Encounter for screening for other disorder (principal) | CPT/HCPCS: 99202 ==

== ENCOUNTER 2024-10-29 09:56 | Outpatient (REF) | payer MEDICARE, SELFPAY ==
--- OUTSIDE RECORDS SUMMARY | 2024-10-29 11:02 | XMS_ITS | Clinical Summary ---
Author Organization [facility] Address [address] [place] [address] Care Team Providers Care Tool Grinder Operator Surface Name Role Phone Unavailable Primary Care Provider Unavailabl e Social History Tobacco Use Types Packs/Day Years Used Date Smoking Tobacco: Never Assessed Sex and Gender Information Value Date Recorded Sex Assigned at Not on file Gender Identity Not on file Sexual Orientation Not on file Plan of Treatment Not on file
[2024-10-29 14:09] LABS: MANUAL DIFF FLAG NO
[2024-10-29 14:17] LABS: Basophils Absolute Auto 0.1 X10*3/uL (0.0-0.2); Basophils Percent Auto 1.1 % (0-2); Eosinophils Absolute Auto 0.2 X10*3/uL (0.0-0.4); Eosinophils Percent Auto 3.7 % (0-4); Hematocrit 39.6 % (37.0-47.0); Hemoglobin 13.1 g/dl (12.0-16.0); Imm Gran Abs Auto 0.01 X10*3/uL (0.00-0.03); Imm Gran Pct Auto 0.2 % (0.0-0.4); Lymphocytes Absolute Auto 1.2 X10*3/uL (1.2-4.9); Lymphocytes Percent Auto 21.8 % (20-40); Mean Corpuscular HGB Conc 33.1 g/dl (31.0-35.0); Mean Corpuscular Volume 87.6 fL (80.0-98.0); Mean Platelet Volume 10.1 fL (9.4-12.3); Monocytes Absolute Auto 0.4 X10*3/uL (0.1-1.2); Monocytes Percent Auto 7.8 % (2-11); Neutrophils Absolute Auto 3.5 x10*3/uL (2.0-8.3); Neutrophils Percent Auto 65.4 % (45-73); Platelet Count 304 X10*3/uL (160-400); Red Blood Count 4.52 X10*6/uL (4.20-5.50); Red Cell Distribution Width 14.1 % (11.0-16.0); White Blood Count 5.4 X10*3/uL (4.8-10.8)
[2024-10-29 14:37] LABS: Estimated Average Glucose 114 mg/dL; Hemoglobin A1C 131.4815 umol/L; Hemoglobin A1c % 5.6 % (<6.0); Total Hemoglobin (HGBA1C) 3470.0129 umol/L
[2024-10-29 14:54] LABS: Alanine Aminotransferase 31 U/L (0-31); Albumin Level 4.3 g/dL (3.5-5.0); Alkaline Phosphatase 111 U/L (39-117); Anion Gap 12 (12-20); Aspartate Amino Transferase 37 U/L (5-31); Bilirubin Direct 0.4 mg/dL (0.0-0.5); Bilirubin Total 1.1 mg/dL (0.0-1.0); Blood Urea Nitrogen 23 mg/dL (9-16); Calcium 9.7 mg/dL (8.4-10.2); Carbon Dioxide 28 mmol/L (22-29); Chloride 105 mmol/L (96-108); Cholesterol 120 mg/dL (<200); Estimated Glomerular Filt Rate 45; Glucose Random 95 mg/dL (60-115); HDL Cholesterol 50 mg/dL (>40); LDL Cholesterol Calculated 62 mg/dL (<100); Potassium 3.6 mmol/L (3.3-5.1); Sodium 141 mmol/L (135-145); Triglycerides 42 mg/dL (<150)
[2024-10-29 15:14] LABS: TSH reflex Free T4 1.48 uIU/mL (0.32-4.0)
== END 2024-10-29 09:57 | disposition home or self-care (01) ==
LOC: HO.10HDL 09:56
PROVIDERS: Visit Provider Physician Assistant
DX: I50.9 Heart failure, unspecified (principal); I25.10 Atherosclerotic heart disease of native coronary artery without angina pectoris; I48.19 Other persistent atrial fibrillation; Z86.73 Personal history of transient ischemic attack (TIA), and cerebral infarction without residual deficits; Z79.01 Long term (current) use of anticoagulants; Z79.899 Other long term (current) drug therapy; Z51.89 Encounter for other specified aftercare; Z13.1 Encounter for screening for diabetes mellitus
CPT/HCPCS: 36415; 80048; 80061; 80076; 83036; 84443; 85025; 99202

== ENCOUNTER 2025-02-12 15:50 | Outpatient (REF) | payer MEDICARE, SELFPAY ==
[2025-02-12 16:43] LABS: MANUAL DIFF FLAG NO
[2025-02-12 17:10] LABS: Hematocrit 35.6 % (37.0-47.0); Hemoglobin 12.3 g/dl (12.0-16.0); Imm Gran Abs Auto 0.01 X10*3/uL (0.00-0.03); Imm Gran Pct Auto 0.2 % (0.0-0.4); Lymphocytes Absolute Auto 1.3 X10*3/uL (1.2-4.9); Mean Corpuscular HGB Conc 34.6 g/dl (31.0-35.0); Mean Corpuscular Hemoglobin 29.9 pg (27.0-33.0); Mean Corpuscular Volume 86.6 fL (80.0-98.0); NRBC Abs Auto 0.000 X10*3/uL (0.0-0.012); NRBC Pct Auto 0.0 /100WBC (0.0-0.2); Platelet Count 262 X10*3/uL (160-400); Red Blood Count 4.11 X10*6/uL (4.20-5.50); White Blood Count 6.2 X10*3/uL (4.8-10.8)
== END 2025-02-12 15:51 | disposition home or self-care (01) ==
LOC: HO.LAB 15:50
PROVIDERS: PCP Student in an Organized Health Care Education/Training Program; Visit Provider Student in an Organized Health Care Education/Training Program
DX: R04.0 Epistaxis (principal); I11.0 Hypertensive heart disease with heart failure; I50.9 Heart failure, unspecified; I48.19 Other persistent atrial fibrillation; Z86.73 Personal history of transient ischemic attack (TIA), and cerebral infarction without residual deficits
CPT/HCPCS: 36415; 85025; 96127; 99212

== ENCOUNTER → 2025-02-12 15:50 | Outpatient (AMB) | payer MEDICARE, SELFPAY ==
--- NOTE | 2025-02-12 15:52 | A.OFFPC_ITS ---
Vital Signs 02/12/25 15:57 Height 5 ft 4 in Weight 143 lb BMI 24.5 BP 130/76 Blood Pressure Location Rt brachial Position Sitting Respiration 18 Pulse 76 Pulse Source Pulse Oximeter Temp 97.4 F Temp Source Temporal Artery Scan Pulse Oximetry (%) 94 Oxygen Delivery Method Room Air Intake Visit Reasons: 3 Month F/U Coloring Room Worker Required: No Accompanied by: Daughter Allergies amoxicillin (AMOXICILLIN) Allergy (Unknown, Verified 02/12/25 15:52) ITCHINESS/RASH Amoxicillin Allergy (Unknown, Uncoded 10/29/24 09:24) ??rash Tobacco use date assessed: 02/12/25 Fall risk assessment: No Falls in past year Last assessed Fall Risk: 02/12/25 HPI HPI Comments History of Present Illness Details The patient is a 79-year-old female presenting with episodes of epistaxis. The nosebleeds have been occurring sporadically for approximately a month, with past previous similar episodes noted over a couple of years. The patient was previously hospitalized for uncontrolled bleeding, although the exact date is not remembered. She has blood thinners, specifically Eliquis, previously contributing to a complexity in managing the bleeding episodes. The bleeding described is neither massive nor profuse but persistent enough to cause concern, occurring more frequently in a dry, heated environment. Her history is significant for three previous strokes. During one of these incidents, an emergency intervention was deemed necessary. Additionally, she has been diagnosed with atrial fibrillation, for which blood thinners were prescribed. The strokes appear to have caused some level of debility, noted by her fall risk and the necessity for assistance with ambulation. Medical History: - Atrial Fibrillation - Hypertension - Three previous strokes - Congestive Heart Failure Surgical History: - None reported Medications: - Eliquis for Atrial Fibrillation - Vitamin D3, 1000 IU - B Complex Vitamins - Aspirin - Unidentified medication for hypertensi on Social: - Lives with daughter - Occasionally uses a walker - Minimal outdoor activity leading to lo w Vitamin D levels [facility] Medical History (Updated 02/12/25 @ 16:26 by Thomas Evans MD) Hypertension Epistaxis Stroke Atherosclerotic cardiovascular disease Persistent atrial fibrillation Surgical History (Updated 10/30/24 @ 10:56 by KASIA Larkin) S/P cardiac catheterization History of colonoscopy (~02/24/14) Family History (Updated 01/03/23 @ 08:38 by Sarah Trevizo) Brother S/P triple vessel bypass Social History (Updated 01/03/23 @ 08:38 by Sarah Trevizo) Alcohol intake: never Patient Tobacco Use Status: Never used Tobacco e-Cigarette/Vaping Use: Never Used Questionnaire PHQ-9 Over the last 2 weeks, how often have you been bothered by any of the following problems? 1. Little interest or pleasure in doing things: not at all 2. Feeling down, depressed, or hopeless: not at all 3. Trouble falling or staying asleep, or sleeping too much: not at all 4. Feeling tired or having little energy: not at all 5. Poor appetite or overeating: not at all 6. Feeling bad about yourself - or that you are a failure or have let yourself or your family down: not at all 7. Trouble concentrating on things, such as reading the newspaper or watching television: not at all 8. Moving or speaking so slowly that other people could have noticed. Or the opposite - being so fidgety or restless that you have been moving around a lot more than usual: not at all 9. Thoughts that you would be better off or of hurting yourself in some way: not at all Total score: 0 Depression Screening Interpretation: Negative Depression Screening Done: Yes 67265 - PHQ-9 Billing: Yes Source: Developed by Drs. Braulio Mcnair, Cinthia Garza, Gatito Mcneill and colleagues, with an educational ana from [employer]. AUDIT C Alcohol Use Questionnaire (AUDIT-C) 1. How often do you have a drink containing alcohol?: Monthly or less 2. How many drinks containing alcohol do you have on a typical day when you are drinking?: 1 or 2 Total Score: 1 URIEL-7 AMB Questionnaire URIEL-7 Date URIEL - 7 assessed: 02/12/25 Feeling nervous, anxious, or on edge: 0 = Not at all Not being able to stop or control worryin = Not at all Worrying too much about different things: 0 = Not at all Trouble relaxin = Not at all Being so restless that it is hard to sit still: 0 = Not at all Becoming easily annoyed or irritable: 0 = Not at all Feeling afraid as if something awful might happen: 0 = Not at all Total URIEL-7 score (0-4 normal; 5-9 mild; 10-14 moderate; 15-21 severe): 0 Source: Developed by Drs. Braulio Mcnair, Cinthia Garza, Gatito Mcneill and colleagues, with an educational ana from [employer]. URIEL-7 Assessment Billing URIEL-7 Assessment Tool: URIEL-7 Assessment 92806 Review of Systems Const Details: - Ears, Nose, Throat: Reports on-and-off nosebleeds. - Neurological: Denies headaches or recent neurological changes. - Hematological: Reports no unusual bruising other than the bleeding from the no se. All systems reviewed & are unremarkable except as noted in HPI and below Physical exam (Primary Care) Vital Signs: Last Vital Signs Temp 97.4 F 02/12/25 15:57 Pulse 76 02/12/25 15:57 Resp 18 02/12/25 15:57 BP 130/76 02/12/25 15:57 Pulse Ox 94 02/12/25 15:57 Oxygen Delivery Method Room Air 02/12/25 15:57 BMI result Body Mass Index 24.5 Tobacco/Smoking Status: Tobacco use Status Tobacco use date assessed 02/12/25 02/12/25 16:02 Patient Tobacco Use Status Never used Tobacco 02/12/25 15:54 e-Cigarette/Vaping Use Never Used 02/12/25 16:02 Depression Screening Interpretation: Negative Const Other: General: +Alert and oriented, Well nourished, No acute distress. Eye: Pupils are equal, round and reactive to light, Intact accommodation, Extraocular movements are intact, Normal conjunctiva, Vision unchanged. HENT: Normocephalic, Atraumatic, Tympanic membranes are clear, Normal hearing, Oral mucosa is moist, No pharyngeal erythema, Ear canals patent. Respiratory: Lungs CTA bilaterally, No wheeze, Respirations are non-labored. Cardiovascular: Regular rate, Regular rhythm, S1 auscultated, S2 auscultated, No murmur, Good pulses equal in all extremities, Normal peripheral perfusion, No edema. Gastrointestinal: Soft, Non-tender, Non-distended, Normal bowel sounds, No organomegaly. Musculoskeletal: Normal range of motion, Normal strength, No tenderness, No swelling, No deformity, Normal gait. Integumentary: Warm, Dry, [place], Intact. Neurologic: Alert, Oriented, Normal sensory, Normal motor function, No focal defects, Cranial Nerves II-XII are grossly intact, Normal deep tendon reflexes. Psychiatric: Cooperative, Appropriate mood & affect, Normal judgment. Coding Level of Care Code Est Pt Level 4 (32912) Complex EM visit Add On G2211 Diagnoses Epistaxis R04.0 Congestive heart failure I50.9 Persistent atrial fibrillation I48.19 Stroke I63.9 Hypertension I10 Additional Codes URIEL-7 Assessment Billing - URIEL-7 Assessment Tool: URIEL-7 Assessment 45844 ([id number]) PHQ-9 - 93611 - PHQ-9 Billing: Yes ([id number]) Assessment & Plan Assessment & Plan (1) Epistaxis: Comment: - Consideration of environmental factors contributing to dry nasal passages (Given improvement with humidifier) - Prescribed nasal saline spray to maintain moisturization. - Advised emergency intervention if nosebleeds become severe. Code(s): R04.0 - Epistaxis Category: Medical (2) Congestive heart failure: Comment: Prior history with normal ef in 2022. No repeat echo since therefore will obtain echo and refer to cardio Code(s): I50.9 - Heart failure, unspecified Category: Medical (3) Persistent atrial fibrillation: Comment: Continued management with Eliquis to prevent stroke. - Potential consideration for Watchman device for reducing long-term use of anticoagulants depending on [id number] and HAS-BLED score assessments. Code(s): I48.19 - Other persistent atrial fibrillation Category: Medical Plan: - Referred to cardio (4) Stroke: Comment: 2015. unsteady using walker, no other sequela Code(s): I63.9 - Cerebral infarction, unspecified Category: Medical (5) Hypertension: Comment: - Current management deemed effective with no specific alterations at present. Code(s): I10 - Essential (primary) hypertension Category: Medical Plan The patient and her daughter were informed of the primary management steps for her epistaxis, which include the usage of a nasal saline spray to maintain nasal hydration and avoiding the usage of harsh medications due to her age and systemic profile. The implications of being on blood thinners, especially with her background of atrial fibrillation, were discussed extensively. The risk of intracranial bleeding due to her stroke history and the potential advantages of a Watchman device were highlighted during the session. A referral to cardiology was recommended for further assessment and management, particularly concerning the advisability and timing of transitioning her off anticoagulant therapy. A CBC test was ordered to evaluate any potential decrement in hemoglobin levels given her recent bleeding episodes. The family was reminded to ensure environmental adjustments to prevent excessive drying in her living space. Recommendations were laid out clearly for appropriate emergency care protocols if bleeding escalates. Orders: Orders Complete Blood Count Auto Diff Today R04.0 - Epistaxis CA echo transthoracic complete Today I50.9 - Heart failure, unspecified Referrals Cardiology Referral I48.19 - Other persistent atrial fibrillation, I50.9 - Heart failure, unspecified Medications: New sodium chloride 0.65% ([place] Saline) 1 spray intranasal BID PRN 50 mL 0RF dry nasal passages Changed From vitamin B complex 1 cap PO DAILY To vitamin B complex 1 cap PO DAILY 90 caps 0RF 90 days From cholecalciferol (vitamin D3) 25 mcg PO DAILY To cholecalciferol (vitamin D3) 25 mcg PO DAILY 90 caps 0RF 90 days From aspirin (Adult Aspirin Regimen) 81 mg PO DAILY To aspirin (Adult Aspirin Regimen) 81 mg PO DAILY 90 tabs 0RF 90 days Patient Instructions: - Apply nasal saline spray as directed to keep nasal passages moisturized. - Maintain awareness of bleeding episodes; seek emergency care if severe. - Continue current medication regimen including Eliquis, aspirin, Vitamin D3, and B-complex supplements. - Use a walker for all mobility maneuvers to decrease fall risk. - Attend all appointments for scheduled tests and follow-ups, including cardiology. - Ensure to have prescriptions updated with her pharmacy.
[2025-02-12 15:57] VITALS: BP 130/76; PULSE 76; RESP 18; TEMP 36.3; O2SAT 94; BMI 24.5
--- OUTSIDE RECORDS SUMMARY | 2025-02-12 17:43 | XMS_ITS | Patient Health Record ---
Author Organization [facility] Address [address] [place] [id number] Care Team Providers Care Modern Dancer Name Role Phone Keren (RETIRED) Shailesh POWELL Primary Care Provide r Unavailable Braulio Barrientos Unavailable [phone] Allergies Allergen (clinical drug ingredient) Drug/Non Drug [...] Status Risk Notes Problem Already on aspirin (132604258) Long-term (current) use of aspirin (V58.66) Active confirmed Problem Colorectal cancer screening service (qualifier value) ([id number]) Encounter for colorectal cancer screening (V76.51) Active confirmed Plan Of Treatment Future Test Test Name Order Date COLONOSCOPY 11/13/2013 Insurance Providers Payer Name Payer Address Payer Phone Subscriber Number Group Number Insured Name Patient Relationship to Insured Coverage Start Date Coverage End Date [place]ARE [place] [address] [place] [address] [phone] [id number] JENNY BROWN Self - patient is the insured Medical (General) History Medical History History ICD Code NC in 2010---1 stent placed at that time HTN Denies DM,CVA,Lung disease,renal disease Negative colonoscopy in approx. 2003 at [facility] Hyperlipidemia Describes episode of CHF in 09/2013 at [facility]--sees Dr. Keke Riggins Surgical History Surgery Date(Month/Year) hysterectomy and removal of 1 ovary
--- OUTSIDE RECORDS SUMMARY | 2025-02-12 17:43 | XMS_ITS | Clinical Summary ---
Author Organization [facility] Address [address] [place] [address] Care Team Providers Care Tank Hoop Bender Name Role Phone Unavailable Primary Care Provider Unavailabl e Social History Tobacco Use Types Packs/Day Years Used Date Smoking Tobacco: Never Assessed Sex and Gender Information Value Date Recorded Sex Assigned at Not on file Gender Identity Not on file Sexual Orientation Not on file Plan of Treatment Not on file
== END ==
LOC: HO.HMCHD 15:50
PROVIDERS: PCP Physician Assistant; Visit Provider Student in an Organized Health Care Education/Training Program
DX: I11.0 Hypertensive heart disease with heart failure (principal); I50.9 Heart failure, unspecified; I48.19 Other persistent atrial fibrillation; I63.9 Cerebral infarction, unspecified; R04.0 Epistaxis

== ENCOUNTER → 2025-03-19 10:01 | Outpatient (REF) | payer MEDICARE, SELFPAY ==
--- NOTE | 2025-03-19 10:05 | CA_ITS ---
Transthoracic Echocardiogram Patient (Last, First, Middle): Karolina Reed, Gender: F Date of : 1945 Age: 79 Procedure Date: 03/19/2025 Procedure Type: Transthoracic Echocardiogram Location: OP Height: 162.56 cm Weight: 64.86 kg BSA: 1.70 m2 Heart Rate: 70 bpm BP: 132 / 72 mmHg Contact Center Analyst: SB Referring MD: Thomas Evans MD Oyster Shucker: Clay Werner MD Symptoms: I50.9 - Heart failure, unspecified Study Quality: Adequate ECG Rhythm: Atrial Fibrillation Conclusions: - 1. Low normal LV ejection fraction 50-55% 2. Moderate left atrial and severe right atrial enlargement 3. Rrlw-ps-iulljwbx aortic regurgitation mild aortic stenosis 4. Moderate tricuspid regurgitation 5. Severely elevated right ventricular systolic pressure with significantly elevated right atrial pressures 6. Mildly dilated ascending aorta 7. No gross pericardial effusion Findings Left Ventricle Normal left ventricular cavity size. There is normal left ventricular wall thickness. The left ventricular systolic function is low normal. The visually estimated ejection fraction is between 50-55%. Diastolic function is indeterminate on the basis of available data. There is moderate septal asymmetric hypertrophy. Right Ventricle Mildly increased right ventricular cavity size. There is mild to moderately decreased right ventricular systolic function. Atria The left atrium is moderately dilated. There is no evidence of interatrial shunt. The right atrium is severely dilated. Aortic Valve There is mild calcification of the aortic valve. There is mild aortic valve stenosis. There is mild to moderate aortic valve regurgitation. Mitral Valve There is mild anterior and posterior mitral leaflet thickening. There is mild mitral valve regurgitation. There is no mitral valve stenosis. Pulmonic Valve The pulmonic valve is likely normal. There is mild pulmonic valve regurgitation. Tricuspid Valve Normal tricuspid valve structure. There is moderate tricuspid valve regurgitation. Significantly elevated right atrial pressure. Severe pulmonary hypertension is present. Great Vessels The pulmonary artery was not well visualized. There is mild dilatation of the ascending aorta measuring 4.30 cm. Small plaque is seen in the sino tubular ridge. Venous The inferior vena cava is moderately dilated and does not collapse with inspiration. Pericardium/Pleural There is no evidence of pericardial effusion. Prior Study Comparison Changes noted compared to prior study dated: 01/11/2023. LV ejection fraction in his reduced, RV systolic pressure is increased Measurements 2D Linear Measurements IVSd: 0.94 0.6-0.9/0.6-1.0 cm LVIDd: 4.97 3.9-5.3/4.2-5.9 cm LVIDd Index: 2.92 2.4-3.2/2.2-3.1 cm/m2 LVIDs: 3.79 2.0-3.6 cm LVPWd: 0.99 0.7-1.1 cm LA Diam: 4.60 2.7-3.8/3.0-4.0 cm LAIDs Index: 2.71 1.5-2.3 cm/m2 LV Mass: 213.83 67-162/88-224 g LV Mass Index: 125.78 43-95/49-115 g/m2 LVOT Diam: 2.00 3.0+(-)1.3 cm 2D Systolic Function EF 4C: 48.50 >55% EF 2C: 55.10 >55% EF BiP: 52.20 >55% Mitral Valve MV Pk E: 1.19 MV Decel Time: 141.00 E'Lateral: 8.23 E'Medial: 5.31 E/E' Med: 22.40 E/E' Lat: 14.50 Aortic Valve AoV Pk Dereck: 1.81 AoV Mn Dereck: 1.23 AoV VTI: 0.36 AoV Pk Grad: 13.00 Aov Mn Grad: 7.00 MARK Cont.VTI: 2.15 AI Pk Dereck: 2.91 AI [place]: 2.01 LVOT LVOT Pk Dereck: 1.23 LVOT Mn Dereck: 0.81 LVOT VTI: 0.25 LVOT Pk Grad: 6.00 LVOT Mn Grad: 3.00 LVOT Diam: 2.00 LVOT Area: 3.14 Diastolic Function MV Pk E: 1.19 E'Medial: 5.31 E/E' Med: 22.40 E' Laterial: 8.23 E/E' Lat: 14.50 Right Ventricle TAPSE (mm): 14.30 TVS' Dereck: 7.23 Tricuspid Valve TR Pk Dereck: 4.22 TR Pk Grad: 71.00 RA Press: 15.00 RVSP: 86.00 Great Vessels Aorta Sinus of Valsalva: 3.20 2.0-3.5 cm Ao Asc: 4.30 2.1-3.4 cm Pulmonary Valve PV Pk Dereck: 0.86 Peak PV Grad: 3.00 TX Pk Dereck: 2.82 Updated in Other Vendor System with Status of Final Clay Werner MD electronically signed on 03/19/2025 4:24:07 PM with status of Final
== END ==
LOC: HO.CARD 10:01
PROVIDERS: PCP Student in an Organized Health Care Education/Training Program; Visit Provider Student in an Organized Health Care Education/Training Program
DX: I50.9 Heart failure, unspecified (principal)
CPT/HCPCS: 93306

== ENCOUNTER → 2025-03-19 10:05 | Outpatient (BNV) | payer MEDICARE, SELFPAY | PROVIDERS: PCP Student in an Organized Health Care Education/Training Program; Visit Provider Internal Medicine Cardiovascular Disease | DX: I42.2 Other hypertrophic cardiomyopathy (principal); I51.7 Cardiomegaly; I35.2 Nonrheumatic aortic (valve) stenosis with insufficiency; I36.1 Nonrheumatic tricuspid (valve) insufficiency | CPT/HCPCS: 93306 ==

== ENCOUNTER 2025-04-02 09:24 | Outpatient (AMB) | payer MEDICARE, SELFPAY ==
[2025-04-02 09:26] VITALS: BP 126/58; PULSE 75; BMI 25.3
--- NOTE | 2025-04-02 09:26 | A.OFFVIS_ITS ---
Vital Signs 04/02/25 09:26 Height 5 ft 4 in Weight 147 lb 4.301 oz BMI 25.3 BP 126/58 L Blood Pressure Location Rt brachial Position Sitting Pulse 75 Pulse Source Monitor Intake Visit Reasons: fu req by PCP/ heart failure Flue Cleaner Required: No Accompanied by: Daughter Allergies amoxicillin (AMOXICILLIN) Allergy (Unknown, Verified 04/02/25 09:28) ITCHINESS/RASH Amoxicillin Allergy (Unknown, Uncoded 10/29/24 09:24) ??rash Medication List - Last Reconciled 04/02/25 by Girish Jalloh MD amlodipine 10 mg PO DAILY 90 days apixaban (Eliquis) 5 mg PO BID aspirin (Adult Aspirin Regimen) 81 mg PO DAILY 90 days atorvastatin 80 mg PO BEDTIME cholecalciferol (vitamin D3) 25 mcg PO DAILY 90 days isosorbide mononitrate ER 60 mg PO DAILY metoprolol tartrate 100 mg PO BID nitroglycerin 0.4 mg sublingual Q5M PRN sertraline 25 mg PO DAILY triamterene-hydrochlorothiazid 37.5-25 mg 1 tab PO DAILY vitamin B complex 1 cap PO DAILY 90 days HPI Comments Details: Karolina returns for follow-up. She was seen in 2022 but has not followed up since. History of atrial fibrillation going back many years. History of coronary disease, PCI to circumflex/OM in 2010. Also has diffuse RCA disease. Overall, she feels just about the same as before. Patient denies any shortness of breath, but daughter states that she has been noticing her to be short of breath at times. Some leg swelling. Overall, no new concerns per patient. COUNT INCLUDES THE [facility] Medical History (Updated 04/02/25 @ 12:08 by Girish Jalloh MD) Hypertension Epistaxis Stroke Atherosclerotic cardiovascular disease Persistent atrial fibrillation Surgical History S/P cardiac catheterization History of colonoscopy (~02/24/14) Family History (Updated 01/03/23 @ 08:38 by Sarah Trevizo) Brother S/P triple vessel bypass Social History (Updated 01/03/23 @ 08:38 by Sarah Trevizo) Alcohol intake: never Patient Tobacco Use Status: Never used Tobacco e-Cigarette/Vaping Use: Never Used Review of Systems Const Denies daytime sleepiness, Denies difficulty sleeping, Denies snoring, Denies stops breathing during sleep and Denies weakness Card Denies chest pain, Denies rapid heart rate, Denies irregular heart rhythm, Denies claudication, Denies leg edema, Denies lightheadedness, Denies palpitations, Denies dyspnea, Denies dyspnea on exertion, Denies orthopnea, Denies paroxysmal nocturnal dyspnea and Denies slow heart rate Resp Denies cough, Denies dyspnea, Denies dyspnea on exertion and Denies snoring GI Reports no additional complaints, Denies hematochezia, Denies change in stool character and Denies dyspepsia Musc Denies abnormal gait, Denies muscle weakness and Denies numbness Neuro Denies abnormal gait, Denies numbness and Denies weakness Endo Denies palpitations Physical Exam Vital Signs: Last Vital Signs Pulse 75 04/02/25 09:26 BP 126/58 L 04/02/25 09:26 BMI result Body Mass Index 25.3 Const General: comfortable and no acute distress Orientation/consciousness: patient oriented x3 HEENT Other: Unremarkable Head: Yes normal to inspection Neck Neck: Yes normal visual inspection Chest Chest palpation & inspection: normal inspection of the chest Resp Auscultation: clear to auscultation bilaterally Cardio Palpation: normal PMI Heart sounds: S1 normal heart sound present, S2 normal heart sound present, no gallops, Murmur heart sound present diastolic II/ and at the left sternal alireza rder and systolic and no rubs GI Palpation (GI): Soft to palpation Back/Spine/Pelvis Other: unremarkable Skin General skin exam: no rashes or lesions noted Neuro General: patient oriented x3 Extrem Other: Trace edema General: Yes normal to inspection Psych Mental Status: mental status grossly normal Office Procedures EKG Details: EKG with atrial fibrillation at a rate of 75/Min; PVC versus aberrant conduction. [id number], Complete Assessment & Plan Assessment & Plan (1) Persistent atrial fibrillation: Code(s): I48.19 - Other persistent atrial fibrillation Category: Medical Plan: Longstanding and this is essentially permanent atrial fibrillation. Remains on metoprolol/Eliquis. No changes made in that regard. (2) Atherosclerotic cardiovascular disease: Code(s): I25.10 - Atherosclerotic heart disease of [place] coronary artery without angina pectoris Category: Medical Plan: Per prior documentation, PCI to circumflex/OM from 2010. Severe diffuse RCA disease as well. She has got no anginal-type symptoms. On statins. LDL is controlled. (3) Chronic diastolic (congestive) heart failure: Code(s): I50.32 - Chronic diastolic (congestive) heart failure Category: Medical Plan: Suspect some diastolic heart failure related to coronary disease, hypertension and also atrial fibrillation. Patient herself denies shortness of breath but daughter thinks she has. We agreed on stopping the Triamterene/HCTZ and using Lasix instead. We can uptitrate accordingly. May need potassium replacement too. Labs to be done in a couple of weeks. (4) Valvular heart disease: Code(s): I38 - Endocarditis, valve unspecified Category: Medical Plan: On the echocardiogram, mild aortic stenosis; biof-tl-zkceeusy aortic regurgitation; mild mitral regurgitation; moderate tricuspid regurgitation. No specific management. (5) Pulmonary hypertension: Code(s): I27.20 - Pulmonary hypertension, unspecified Category: Medical Plan: In the echocardiogram, severe pulmonary hypertension with elevated right-sided pressures. Likely all related to left-sided heart failure and atrial fibrillation. At her age, no definitive therapies. Hopefully, with diuretics it might improve. (6) Ascending aorta enlargement: Code(s): I77.89 - Other specified disorders of arteries and arterioles Category: Medical Plan: Ascending aortic size 4.3 cm. Can be monitored periodically. Plan Discussed with daughter who came for appointment. Orders: Orders Basic Metabolic Panel Today I50.9 - Heart failure, unspecified NT Pro B Type Natriuretic Pept Today I50.9 - Heart failure, unspecified Medications: New furosemide (Lasix) 40 mg PO BID 180 tabs 1RF 90 days Discontinued triamterene-hydrochlorothiazid 37.5-25 mg Discontinued Reason: Doctor's Order 1 tab PO DAILY 90 tabs 1RF aspirin (Adult Aspirin Regimen) Discontinued Reason: Doctor's Order 81 mg PO DAILY 90 days 90 tabs 0RF Coding Level of Care Code Est Pt Level 4 (20058) Complex EM visit Add On G2211 Diagnoses Persistent atrial fibrillation I48.19 Atherosclerotic cardiovascular disease I25.10 Chronic diastolic (congestive) heart failure I50.32 Valvular heart disease I38 Pulmonary hypertension I27.20 Ascending aorta enlargement I77.89 CPT Codes EKG - CPT: 28728-Fwfjtypyyatftzytz, Complete ([id number])
--- OUTSIDE RECORDS SUMMARY | 2025-04-02 10:42 | XMS_ITS | Clinical Summary ---
Author Organization [facility] Address [address] [place] [address] Care Team Providers Care Sheeter Helper Name Role Phone Unavailable Primary Care Provider Unavailabl e Social History Tobacco Use Types Packs/Day Years Used Date Smoking Tobacco: Never Assessed Sex and Gender Information Value Date Recorded Sex Assigned at Not on file Gender Identity Not on file Sexual Orientation Not on file Plan of Treatment Not on file
--- OUTSIDE RECORDS SUMMARY | 2025-04-02 10:42 | XMS_ITS | Patient Health Record ---
Author Organization [facility] Address [address] [place] [id number] Care Team Providers Care Movie Critic Name Role Phone Keren (RETIRED) Shailesh POWELL Primary Care Provide r Unavailable Braulio Barrientos Unavailable [phone] Allergies Allergen (clinical drug ingredient) Drug/Non Drug Allergy documented on EMR Reaction Allergy Type Onset Date Status amoxicillin Amoxicillin Unknown Drug Allergy Act alia Reason For Referral No Information Medications Medication SIG (Take, Route, Frequency, Duration) Notes Start Date End Date Status Metoprolol Tartrate 100 MG take 1 tablet by mouth AT ONSET OF HEADACHE..REPEAT 2 HOURS LATER IF NEEDED Oral; Duration: 090 Active Simvastatin 80 MG take 1 tablet by mouth AT ONSET OF HEADACHE..REPEAT 2 HOURS LATER IF NEEDED Oral; Duration: 090 Active traZODone HCl 50 MG take 1 tablet by mouth AT ONSET OF HEADACHE..REPEAT 2 HOURS LATER IF NEEDED Oral; Duration: 030 Active Isosorbide Mononitrate ER 30 MG take 1 t ablet by mouth AT ONSET OF HEADACHE..REPEAT 2 HOURS LATER IF NEEDED Oral; Duration: 030 Active Aspir-81 81 MG 1 tablet Orally Once a day 11/13/2013 Active hydroCHLOROthiazide 25 MG 1 tablet Orall y Once a day Active FLUoxetine HCl 20 MG take 1 tablet by mouth AT ONSET OF HEADACHE..REPEAT 2 HOURS LATER IF NEEDED Oral; Duration: 090 Active Valsartan 160 MG 1 tablet Orally Once a day 11/13/2013 Active Colyte w Flavor Packs 240 GM as directed Orally as directed; Duration: 1 day(s) 11/13/2013 Active Problems Problem Type SNOMED Code ICD Code Onset Dates Problem Status W/U Status Risk Notes Problem Already on aspirin (169496751) Long-term (current) use of aspirin (V58.66) Active confirmed Problem Colorectal cancer screening service (qualifier value) (0893291518) Encounter for colorectal cancer screening (V76.51) Active confirmed Plan Of Treatment Future Test Test Name Order Date COLONOSCOPY 11/13/2013 Insurance Providers Payer Name Payer Address Payer Phone Subscriber Number Group Number Insured Name Patient Relationship to Insured Coverage Start Date Coverage End Date [place] OF [place] [address] [facility] [address] [phone] [id number] JENNY BROWN Self - patient is the insured Medical (General) History Medical History History ICD Code MN in 2010---1 stent placed at that time HTN Denies DM,CVA,Lung disease,renal disease Negative colonoscopy in approx. 2003 at [facility] Hyperlipidemia Describes episode of CHF in 09/2013 at [facility]--sees Dr. Keke Riggins Surgical History Surgery Date(Month/Year) hysterectomy and removal of 1 ovary
== END 2025-04-02 09:55 | disposition home or self-care (01) ==
LOC: HO.HCS 09:24
PROVIDERS: PCP Student in an Organized Health Care Education/Training Program; Visit Provider Internal Medicine
DX: I48.19 Other persistent atrial fibrillation (principal); I25.10 Atherosclerotic heart disease of native coronary artery without angina pectoris; I50.32 Chronic diastolic (congestive) heart failure; I38 Endocarditis, valve unspecified; I27.20 Pulmonary hypertension, unspecified; I77.89 Other specified disorders of arteries and arterioles
CPT/HCPCS: 93010; 99214; G2211

== ENCOUNTER 2025-04-02 09:24 | Outpatient (REF) | payer MEDICARE, SELFPAY ==
[2025-04-02 11:36] LABS: Anion Gap 12 (12-20); Blood Urea Nitrogen 23 mg/dL (9-16); Calcium 9.4 mg/dL (8.4-10.2); Carbon Dioxide 27 mmol/L (22-29); Chloride 109 mmol/L (96-108); Estimated Glomerular Filt Rate 47; Potassium 4.0 mmol/L (3.3-5.1); Sodium 144 mmol/L (135-145)
== END 2025-04-02 09:25 | disposition home or self-care (01) ==
LOC: HO.LAB 09:24
PROVIDERS: PCP Student in an Organized Health Care Education/Training Program; Visit Provider Internal Medicine
DX: I11.0 Hypertensive heart disease with heart failure (principal); I50.32 Chronic diastolic (congestive) heart failure; I48.91 Unspecified atrial fibrillation; I25.10 Atherosclerotic heart disease of native coronary artery without angina pectoris; I38 Endocarditis, valve unspecified; I27.20 Pulmonary hypertension, unspecified; I77.89 Other specified disorders of arteries and arterioles; Z79.01 Long term (current) use of anticoagulants; Z79.82 Long term (current) use of aspirin; Z98.61 Coronary angioplasty status
CPT/HCPCS: 36415; 80048; 83880; 93005; 99212

== ENCOUNTER 2025-05-14 10:09 | Outpatient (AMB) | payer MEDICARE, SELFPAY ==
--- NOTE | 2025-05-14 10:10 | A.OFFPC_ITS ---
Vital Signs 05/14/25 10:20 Height 5 ft 3 in Weight 136 lb BMI 24.1 BP 122/40 L Blood Pressure Location Lt brachial Position Sitting Respiration 20 Pulse 93 Pulse Source Pulse Oximeter Temp 97.6 F Temp Source Temporal Artery Scan Pulse Oximetry (%) 93 Oxygen Delivery Method Room Air Intake Visit Reasons: 3 month f/u Health Unit Coordinator Required: No Accompanied by: Daughter Allergies amoxicillin (AMOXICILLIN) Allergy (Unknown, Verified 05/14/25 10:10) ITCHINESS/RASH Medication List - Last Reconciled 05/14/25 by Thomas Evans MD amlodipine 10 mg PO DAILY 90 days apixaban (Eliquis) 5 mg PO BID atorvastatin 80 mg PO BEDTIME cholecalciferol (vitamin D3) 25 mcg PO DAILY 90 days furosemide (Lasix) 40 mg PO BID 90 days isosorbide mononitrate ER 60 mg PO DAILY metoprolol tartrate 100 mg PO BID 90 days nitroglycerin 0.4 mg sublingual Q5M PRN sertraline 25 mg PO DAILY vitamin B complex 1 cap PO DAILY 90 days Tobacco use date assessed: 02/12/25 Fall risk assessment: No Falls in past year Last assessed Fall Risk: 05/14/25 Dental Screening Dental Screen Date: 05/14/25 Did you have a dental visit in the last 12 months?: Yes Did you have a dental problem in the last 6 months where you did not have access to dental care?: No Was dental information given to patient?: Patient has dentist HPI HPI Comments History of Present Illness Details History of Present Illness The patient is a 79 year old individual presenting for a follow-up visit for management of multiple chronic conditions. The patient was recently seen by a advertisement distributor and an echocardiogram was performed, which showed a heart function of 50-55%, which is not considered systolic heart failure. There is a concern for diastolic heart failure due to impaired relaxation of the heart muscle. The patient reports that shortness of breath has improved since starting furosemide, which replaced hydrochlorothiazide. The patient notes occasional leg swelling. The patient has a history of atrial fibrillation managed with Eliquis and metoprolol. There is a history of two previous strokes. The patient is noted to be unsteady on the feet, and the patient's family has expressed concern about fall risk, encouraging the use of a cane in the house since a walker is too large. The patient has been resistant to using a Life Alert system, though the family is reconsidering it. Other chronic conditions include hypertension and hypercholesterolemia, which are managed with medications. The patient's last blood work was reported as stable. Medical History: - Atrial fibrillation - Diastolic heart failure - Hypertension - Hypercholesterolemia - History of two strokes - Mood disorder Surgical History: - No surgical history was discussed. Medications: - Amlodipine 10 mg for hypertension - Eliquis 5 mg for atrial fibrillation - Atorvastatin 80 mg for high cholestero l - Furosemide (Lasix) 40 mg twice a day f or heart failure - Isosorbide mononitrate 60 mg for hyper tension and heart failure - Metoprolol tartrate 100 mg twice a day for atrial fibrillation - Sertraline for mood - Vitamin B Family History: - No family history was discussed. Diagnostic Results: - Labs: Recent blood work is stable. - Tests and Diagnostics: A recent echoca rdiogram revealed a heart function of 50-55% with possible diastolic heart failure. Social History - Functional status: The patient is unst seymour on the feet and has been encouraged by family to use a cane. - The family is considering a Life Alert system for safety, though the patient has been resistant. - The [facility]. Health Maintenance - Fall prevention: Counseled on the impo rtance of consistently using an assistive device (cane or walker) to prevent falls, especially given the increased risk of bleeding from anticoagulation therapy. - Home safety: Discussed obtaining a Lif e Alert system for peace of mind and emergency assistance. - Accessibility: Provided a form to appl y for a handicap placard. - Follow-up: Recommended a follow-up vis it in four months. Patient was informed and verbally consented to the use of an ambient scribe for clinic note documentation during this visit. Vital signs reviewed. Comprehensive history, review of systems, and physical exam completed. Medications, allergies, and problem list reviewed and updated. Counseling provided on nutrition, regular exercise, sleep hygiene, and moderation of alcohol use. Discussed age-appropriate screenings (mammogram, colonoscopy, Pap, bone density) and immunizations (flu, COVID, shingles, Tdap). Screened for depression, fall risk, and home safety; no current concerns. Discussed stress management, dental and vision care, and importance of ongoing preventive follow-up. Routine labs ordered for metabolic and lipid screening. Patient educated on healthy lifestyle and agrees with the plan. [facility] Medical History (Updated 05/14/25 @ 10:53 by Thomas Evans MD) Other hyperlipidemia Hypertension Epistaxis Stroke Atherosclerotic cardiovascular disease Persistent atrial fibrillation Surgical History S/P cardiac catheterization History of colonoscopy (~02/24/14) Family History (Updated 01/03/23 @ 08:38 by Sarah Trevizo) Brother S/P triple vessel bypass Social History (Updated 01/03/23 @ 08:38 by Sarah Trevizo) Housing: House Alcohol intake: never Patient Tobacco Use Status: Never used Tobacco e-Cigarette/Vaping Use: Never Used service: No Current occupational status: retired Questionnaire Thrive Questionnaire Date Thrive assessed: 05/14/25 I am a: Patient What is your living situation today?: I have a steady place to live Within the past 12 months, did the food you bought not last and you didn't have the money to get more?: Never true Within the past 12 months, did you worry whether your food would run out before you got money to buy more?: Never true Do you have trouble paying for medicines?: No Do you have trouble getting transportation to medical appointments?: No Do you have trouble paying your heating and electricity bill?: No Do you have trouble taking care of your child, family member or friend?: No Do you have trouble with day-to-day activities such as bathing, preparing meals, shopping, managing finances, etc.?: No Are you currently unemployed and looking for a job?: No Are you interested in more education?: No THRIVE Score: 0 URIEL-7 AMB Questionnaire URIEL-7 Date URIEL - 7 assessed: 02/12/25 Source: Developed by Drs. Braulio Mcnair, Cinthia Garza, Gatito Mcneill and colleagues, with an educational ana from [employer]. Review of Systems Narrative Review of Systems - Constitutional: Reports feeling 'fine'. - Respiratory: Reports that breathing has improved. - Cardiovascular: Denies current leg swelling but reports it occurs 'sometimes'. - Neurological: Reports feeling unsteady on the feet. All systems reviewed & are unremarkable except as reviewed in HPI and above Physical exam (Primary Care) Vital Signs: Last Vital Signs Temp 97.6 F 05/14/25 10:20 Pulse 93 05/14/25 10:20 Resp 20 05/14/25 10:20 BP 122/40 L 05/14/25 10:20 Pulse Ox 93 05/14/25 10:20 Oxygen Delivery Method Room Air 05/14/25 10:20 Care Plan Goal for BP management: Within Goal BMI result Body Mass Index 24.1 Tobacco/Smoking Status: Tobacco use Status Tobacco use date assessed 02/12/25 05/14/25 10:13 Patient Tobacco Use Status Never used Tobacco 05/14/25 10:13 e-Cigarette/Vaping Use Never Used 05/14/25 10:13 Thrive Assessment: Date of Thrive Assessment Date Thrive assessed 05/14/25 05/14/25 10:13 Narrative Physical Exam General: +Alert and oriented, Well nourished, No acute distress. Eye: Pupils are equal, round and reactive to light, Intact accommodation, Extraocular movements are intact, Normal conjunctiva, Vision unchanged. HENT: Normocephalic, Atraumatic, Tympanic membranes are clear, Normal hearing, Oral mucosa is moist, No pharyngeal erythema, Ear canals patent. Respiratory: Lungs CTA bilaterally, No wheeze, Respirations are non-labored, Breathing has improved. Cardiovascular: Regular rate, Regular rhythm, S1 auscultated, S2 auscultated, No murmur, Good pulses equal in all extremities, Normal peripheral perfusion, No edema. Gastrointestinal: Soft, Non-tender, Non-distended, Normal bowel sounds, No organomegaly. Musculoskeletal: Normal range of motion, Normal strength, No tenderness, No swelling, No deformity, Normal gait, Some unsteadiness noted, advised to use a cane or walker. Integumentary: Warm, Dry, [place], Intact, Left leg shows more swelling than the right, advised use of compression stockings. Neurologic: Alert, Oriented, Normal sensory, Normal motor function, No focal defects, Cranial Nerves II-XII are grossly intact, Normal deep tendon reflexes. Psychiatric: Cooperative, Appropriate mood & affect, Normal judgment. Coding Level of Care Code Est Pt Level 4 (85506) Complex visit Add On G2211 Diagnoses Persistent atrial fibrillation I48.19 Chronic diastolic (congestive) heart failure I50.32 Primary hypertension I10 Hypertension type: primary hypertension Valvular heart disease I38 Other hyperlipidemia E78.49 Assessment & Plan Assessment & Plan (1) Persistent atrial fibrillation: Comment: - The patient is on Eliquis and metoprolol for management. - The importance of anticoagulation was reinforced due to the history of two strokes. - The plan is to continue the current treatment regimen. Code(s): I48.19 - Other persistent atrial fibrillation Category: Medical (2) Chronic diastolic (congestive) heart failure: Comment: - A recent echocardiogram showed a heart function of 50-55%, suggesting diastolic heart failure. - The patient's dyspnea has improved with the change from hydrochlorothiazide to furosemide 40 mg twice daily. - The plan is to continue the current medication regimen. Code(s): I50.32 - Chronic diastolic (congestive) heart failure Category: Medical (3) Hypertension: Comment: - The conditions are stable on the current medication regimen, which includes amlodipine, isosorbide mononitrate, and atorvastatin. - Blood work is stable. - The plan is to continue all current medications. Code(s): I10 - Essential (primary) hypertension Category: Medical Qualifiers: Hypertension type: primary hypertension Qualified Code(s): I10 - Essential (primary) hypertension (4) Valvular heart disease: Comment: - Per recent echo and per cardiology notes will continue to monitor Code(s): I38 - Endocarditis, valve unspecified Category: Medical (5) Other hyperlipidemia: Comment: - Stable on atorvastatin 80mg - Labs to completed at next physical Code(s): E78.49 - Other hyperlipidemia Category: Medical Plan: 3. Gait abnormality and fall risk - The patient is unsteady on the feet, posing a significant risk, especially while on a blood thinner. - The plan includes counseling the patient to consistently use a cane or walker for support. - The family was encouraged to consider a Life Alert system for increased safety. Health Maintenance: - Fall prevention: Counseled on the importance of consistently using an assistive device (cane or walker) to prevent falls, especially given the increased risk of bleeding from anticoagulation therapy. - Home safety: Discussed obtaining a Life Alert system for peace of mind and emergency assistance. - Accessibility: Provided a form to apply for a handicap placard. - Follow-up: Recommended a follow-up visit in four months. Patient was informed and verbally consented to the use of an ambient scribe for clinic note documentation during this visit. Plan I discussed the recent echocardiogram results with the patient, explaining that the heart's pumping function is between 50-55%, which is not considered systolic heart failure, but that there is a concern for diastolic heart failure, where the heart does not relax properly. I explained that this is the reason for the water pill (furosemide) and noted that the patient's breathing has improved since starting it. I emphasized the significant danger of falling while on a blood thinner like Eliquis for atrial fibrillation, given the patient's history of two strokes. I strongly advised the patient to use a cane or walker at all times for stability and to prevent a potentially serious head injury. I also supported the family's discussion about getting a Life Alert system for added safety. Regarding the leg swelling, I recommended the use of compression stockings and elevating the legs above the heart to help with fluid return. I informed the patient that blood work is stable and all current medications will be continued. A follow-up appointment was scheduled for four months from now, and I provided the necessary form for a handicap placard. Patient Instructions: - Continue to take all of your current medications as prescribed, including a mlodipine, Eliquis, atorvastatin, Lasix (furosemide), isosorbide mononitrate, metoprolol, and sertraline. - It is very important that you use your cane or walker at all times to prevent falls. - A fall could be very dangerous because you are on a blood thinner. - To help with the swelling in your legs, wear compression stockings and keep your legs propped up above the level of your heart when you are sitting. - Talk with your family about getting a Life Alert button for your safety at home. - Your blood tests look good, so we will continue with the current plan. - Please return to the clinic for a follow-up visit in four months. - You will be given a form to apply for a handicap placard; your family can help you mail it in.
[2025-05-14 10:20] VITALS: BP 122/40; PULSE 93; RESP 20; TEMP 36.4; O2SAT 93; BMI 24.1
--- OUTSIDE RECORDS SUMMARY | 2025-05-14 11:33 | XMS_ITS | Clinical Summary ---
Author Organization [facility] Address [address] [place] [address] Care Team Providers Care Event Planning Intern Name Role Phone Unavailable Primary Care Provider Unavailabl e Social History Tobacco Use Types Packs/Day Years Used Date Smoking Tobacco: Never Assessed Sex and Gender Information Value Date Recorded Sex Assigned at Not on file Gender Identity Not on file Sexual Orientation Not on file Plan of Treatment Not on file
== END 2025-05-14 10:49 | disposition home or self-care (01) ==
PROVIDERS: PCP Student in an Organized Health Care Education/Training Program; Visit Provider Student in an Organized Health Care Education/Training Program
DX: I48.19 Other persistent atrial fibrillation (principal); I50.32 Chronic diastolic (congestive) heart failure; I10 Essential (primary) hypertension; I38 Endocarditis, valve unspecified; E78.49 Other hyperlipidemia

== ENCOUNTER → 2025-05-14 10:09 | Outpatient (BNVA) | payer MEDICARE, SELFPAY | PROVIDERS: PCP Physician Assistant; Visit Provider Student in an Organized Health Care Education/Training Program | DX: I48.19 Other persistent atrial fibrillation (principal); I11.0 Hypertensive heart disease with heart failure; I50.32 Chronic diastolic (congestive) heart failure; E78.49 Other hyperlipidemia; I38 Endocarditis, valve unspecified; R26.9 Unspecified abnormalities of gait and mobility; Z91.81 History of falling; Z79.01 Long term (current) use of anticoagulants; Z79.899 Other long term (current) drug therapy | CPT/HCPCS: 99212 ==